=== PATIENT | male | born 1955 | race Caucasian/White ===

== ENCOUNTER 2018-07-16 07:39 | Day surgery (SDC) | payer OTHER ==
[~2018-07-16 07:39] MED LIST: Buffered Lidocaine 0.9% SYRIN* 5 ML/SYR SYRINGE INTRADERM ONE; Famotidine IV* 10 MG/ML 2 ML (20 mg) IV ONE
[2018-07-16] MEDS ORDERED: ceFAZolin 2 GM PREMIX in ORs 2 GM/50 ML BAG IVPB ONE (07:55)
[2018-07-16] MEDS ORDERED: Famotidine IV* 10 MG/ML 2 ML (20 mg) ONE (07:55)
[2018-07-16] MEDS ORDERED: Midazolam* 1 MG/ML 5 ML VIAL (5 MG) ONE (07:56)
[2018-07-16] MEDS ORDERED: fentaNYL* 50 MCG/ML 2 ML VIAL (100 MCG VIAL) ONE (07:56)
[2018-07-16] MEDS ORDERED: Morphine VIAL* 10 MG/ML 1 ML VIAL ONE (09:08)
[2018-07-16] MEDS ORDERED: Lidocaine 2% PF* 10 ML AMP ONE (10:05)
[2018-07-16] MEDS ORDERED: Bupivacaine 0.5% SDV PF* 30ML VIAL ONE (10:05)
[2018-07-16] MEDS ORDERED: Dexamethasone IV* 4 MG/ML 1 ML (4 MG) ONE (10:50)
[2018-07-16] MEDS ORDERED: Ondansetron INJ* 2 MG/ML VIAL ONE (10:50)
[2018-07-16] MEDS ORDERED: Propofol* 10 MG/ML 20 ML BTL IV PUSH ONE (10:50)
[2018-07-16] MEDS ORDERED: Ketorolac INJ* 30 MG/ML 1 ML VIAL ONE (10:50)
[2018-07-16] MEDS ORDERED: DiMENhydriNATE IV* 50 MG/ML VIAL IV PUSH PRN (11:13)
[2018-07-16] MEDS ORDERED: Naloxone* 0.4 MG/ML 1 ML VIAL IV PRN (11:13)
[2018-07-16] MEDS ORDERED: Acetaminophen TAB* 325 MG PO PRN (11:13)
[2018-07-16] MEDS ORDERED: oxyCODONE TAB* 5 MG TAB PO PRN (11:13)
[2018-07-16] MEDS ORDERED: HYDROmorphone INJ1* 1 MG/ML SYRINGE ONE (11:35)
[2018-07-16] MEDS: HYDROmorphone INJ1* 1 MG/ML SYRINGE IV PRN ×3 (11:36→12:11)
[2018-07-16] MEDS ORDERED: oxyCODONE TAB* 5 MG TAB ONE (11:49)
[2018-07-16 13:06] VITALS: BP 127/76
--- NOTE | 2018-07-16 13:07 | OP ---
Operative Report - Blank - Operative Report Date of Operation: 07/16/18 Note: PATIENT: Sourav Ibrahim DATE OF : 1955 DATE OF SURGERY: 07/16/2018 SURGEON: Rk Barton MD SITECORE DEVELOPER: DAISHA Hernandez, whos assistance was necessary for positioning, retraction, help with instrumentation, and closure. ANESTHESIOLOGIST: Dr. Motta PREOPERATIVE DIAGNOSIS: 1. 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 Right metatarsalgia and gastrocnemius contracture POSTOPERATIVE DIAGNOSIS: 1. 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 Right metatarsalgia and gastrocnemius contracture OPERATION: 1. Right 2-3 metatarsal webspace excision of Mortons neuroma 2. Right gastrocnemius recession ANESTHESIA: GETA IMPLANTS: none TOURNIQUET TIME: Less than one hour with a well-padded thigh tourniquet at 250mmHg SPECIMENS: none ESTIMATED BLOOD LOSS: minimal COMPLICATIONS: none STATUS: Stable from the operating room to the recovery room and then home INDICATIONS FOR PROCEDURE: Sourav has had persistent right foot pain refractory to extensive non- operative treatment. Both operative and non-operative treatment alternatives were reviewed. Further, the nature and risks of surgery were reviewed in careful detail. Our discussions regarding the risks of surgery included, but were not limited to, infection, wound problems, nerve injury, recurrent neuroma , RSD, persistent symptoms, blood clot, need for further surgery, failure of the surgery, and even the remote chance of catastrophic complication, including loss of limb. DESCRIPTION OF PROCEDURE: The patient was seen in the preoperative holding unit and informed written consent was obtained. The appropriate extremity was marked. The patient was then brought to the operating room and carefully positioned on the operating room table. Anesthesia was induced. All bony prominences were padded with great care. A well-padded thigh tourniquet was placed. A chlorhexidine based pre- scrub was performed followed by a chloraprep prep and drape in standard sterile fashion. A surgical safety pause was then conducted in which we confirmed the appropriate patient, extremity, planned procedure, availability of equipment, indication and administration of prophylactic antibiotics, and DVT prophylaxis in the form of a compression boot on the non-surgical extremity. I began with an Esmarch exsanguination of the limb and inflated the tourniquet. I then made an approximately 3-cm incision at the posteromedial calf. I carried the dissection through the soft tissue and divided the crural fascia longitudinally. I then exposed the fascia of the gastrocnemius muscle. Great care was taken to protect the sural nerve throughout this procedure. I cleared all adhesions from the posterior aspect of the gastrocnemius fascia and then transected this in its entirety from medially to laterally. I then identified the plantaris tendon, which was also tight medially. This was transected. These procedures had the effect of improving the ankle dorsiflexion to approximately 10 degrees. I then again confirmed that the sural nerve was in continuity. We irrigated copiously. We then used 3-0 Monocryl for the subdermal layer and adele for the skin. I then made an approximately 3 cm incision in the right 2-3 metatarsal web space dorsally. I carried this dissection down through the soft tissue and dissected down between the metatarsal heads. I utilized a laminar appeals representative to gently spread the metatarsal heads apart. I then placed a [place] elevator underneath the intermetatarsal ligament and transected this sharply. I exposed the interdigital nerve where there was some swelling. I meticulously dissected this out with care taken to preserve the lumbrical lateral to the nerve. I then transected the nerve distally. At this point, I gently pulled traction on the nerve and dissected proximally into the plantar aspect of the foot underneath the interossei and the lumbrical. I then transected the nerve as far proximal as was possible. We then irrigated copiously and closed in layers utilizing 3-0 Monocryl for the subdermal layer and 3-0 nylon for the skin. Sterile dressings were then applied. The patient was then awakened from anesthesia and transferred to the recovery room in stable condition. There were no complications. All needle and sponge counts were correct at the end of the case. ATTESTATION: I attest I was present and scrubbed and performed the critical portions of the procedure myself. POSTOPERATIVE PLAN: The plan is for [id number] for 2 weeks. Follow-up will be in 2 weeks for likely suture and staple removal. We will then progress weight-bearing and start physical therapy.
== END 2018-07-16 13:08 | disposition home or self-care (01) ==
LOC: OR 07:39
PROVIDERS: ATTEND Orthopaedic Surgery
DX: G57.61 Lesion of plantar nerve, right lower limb (principal); M67.01 Short Achilles tendon (acquired), right ankle; M77.41 Metatarsalgia, right foot; I10 Essential (primary) hypertension; I25.10 Atherosclerotic heart disease of native coronary artery without angina pectoris; Z72.0 Tobacco use; E03.9 Hypothyroidism, unspecified; Z85.850 Personal history of malignant neoplasm of thyroid
CPT/HCPCS: 88304; A9270-GY; J0690; J1100; J1170; J1885; J2001; J2250; J2270; J2405; J2704; J3010

== ENCOUNTER 2019-07-27 11:30 | Inpatient (IN) | payer BC, OTHER ==
--- NOTE | 2019-07-20 13:35 | HP ---
HISTORY AND PHYSICAL: DATE OF ADMISSION/SURGERY: 07/27/19 DATE OF OFFICE VISIT: 07/19/19 SURGEON: Shanti Morel MD * (DICTATED BY DAISHA DAVIS) PROCEDURE: Left total knee arthroplasty. CHIEF COMPLAINT: Left knee pain. HISTORY OF PRESENT ILLNESS: Mr. Ibrahim is a 63-year-old gentleman with complaints of left knee pain. He has failed conservative treatment and elected to proceed with a left total knee arthroplasty. PAST MEDICAL HISTORY: 1. Hypertension. 2. Hypothyroidism. 3. History of stage 1 thyroid cancer. 4. History of hepatitis C infection in 1995. PAST SURGICAL HISTORY: 1. Thyroidectomy. 2. Right foot surgery. 3. Lumbar diskectomy. 4. Left eye surgery. CURRENT MEDICATIONS: 1. Levothyroxine 125 mcg daily. 2. Vitamin D. 3. Atenolol 50 mg daily. 4. Ramipril 5 mg daily. 6. Tamsulosin 0.4 mg daily. 7. Potassium chloride. 8. Hydrochlorothiazide 25 mg a day. ALLERGIES: To CRESTOR. FAMILY HISTORY: Coronary artery disease and cancer. SOCIAL HISTORY: He is a 63-year-old gentleman, who lives with his . He quit smoking 2 weeks ago. Before that, he smoked for approximately 40 years. He denies use of drugs. REVIEW OF SYSTEMS: A complete 14-point review of systems was reviewed with the patient. It was positive for thyroid disease and history of hepatitis C infection in 1995, which was treated. He denies history of DVT, PE, or anesthesia problems. PHYSICAL EXAMINATION GENERAL: He is well developed, well nourished, in no acute distress. VITAL SIGNS: He stands 70 inches tall, weighs 258 pounds. His blood pressure 138/92, his heart rate is 56. HEENT: Normocephalic, atraumatic. NECK: Supple. No palpable lymph nodes. PULMONARY: The lungs are clear to auscultation bilaterally. CARDIO: Regular rate and rhythm. Strong S1, S2. ABDOMEN: Soft, nontender, nondistended. NEUROLOGIC: He is alert and oriented x3. MUSCULOSKELETAL: Left lower extremity: The skin is intact. There are no open wounds or abrasions. There is a moderate effusion of the left knee joint. Range of motion is 10 to 120 degrees of flexion. There is some tenderness along the medial joint line. He is able to dorsiflex and plantarflex with a 2+ dorsalis pedis pulse and intact sensation. ASSESSMENT AND PLAN: Mr. Ibrahim is a 63-year-old gentleman with severe end- stage osteoarthritis of the left knee, failed conservative treatment and elected to proceed with a left total knee arthroplasty and the surgery is scheduled for 07/27/[address] Morel discussed the risks and benefits of the surgery at today's visit and all of his questions were answered. He will follow up with Dr. Morel 2 weeks after the surgery. DAISHA DAVIS [id number]/[facility] #: [id number] [facility]
--- NOTE | 2019-08-19 19:48 | HP ---
PREOPERATIVE HISTORY AND PHYSICAL: DATE OF ADMISSION: 08/25/19 CHIEF COMPLAINT: Left knee pain. HISTORY OF PRESENT ILLNESS: Mr. Ibrahim is a 63-year-old gentleman with years of increasingly severe left knee pain. He has developed 8/10 aching pain along the joint line of the knee. He failed conservative treatment with anti- inflammatories, physical therapy and intraarticular injections and use of a cane as well as brace wear. The patient has severe end-stage arthritis on x- rays of the left knee. He does wish to proceed with upcoming left total knee arthroplasty on 08/25/19. PAST MEDICAL HISTORY: Foot injury, hypothyroidism, hypertension, cervical spondylosis without myelopathy, chronic neck pain, history of cellulitis of the right lower extremity, traumatic peroneal nerve injury. PAST SURGICAL HISTORY: Right foot surgery. CURRENT MEDICATIONS: 1. Levothyroxine 250 mcg p.o. daily. 2. Multivitamin 1 tablet p.o. daily. 3. Vitamin D 1000 units 1 p.o. daily. 4. Atenolol 50 mg p.o. daily. 5. Ramipril 5 mg p.o. daily. ALLERGIES: CRESTOR. FAMILY HISTORY: Negative. 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 No tobacco, alcohol, or recreational drug use. Normally an independent ambulator. REVIEW OF SYSTEMS: Fourteen systems were reviewed with the patient today; positive for left knee pain, right foot pain; negative for fevers, chills, chest pain, shortness of breath. Otherwise, the patient reports review of systems is negative or not relevant. PHYSICAL EXAMINATION GENERAL: The patient is a well-nourished male, in no apparent distress. Alert and oriented x3. Pleasant mood, appropriate affect. VITAL SIGNS: Height of 5 feet 10-1/2 inches tall, weight of 246 pounds, BMI of 34. Pulse is 72, blood pressure 122/90. GAIT: The patient's gait is antalgic, favoring the left knee. BALANCE: Decreased single-leg stance. Coordination normal. HEENT: Atraumatic, normocephalic. Pupils equal and reactive to light. CHEST: Unlabored breathing. EXTREMITIES: Bilateral upper extremities: The patient's skin is intact. No abrasions or open wounds. Some arthritic nodules along its PIP and DIP joints of the hands, full range of motion of the shoulders, neurovascularly intact. Bilateral lower extremities: The patient's skin is intact with varus deformity of both knees. Left knee has a moderate effusion with tenderness along the medial joint line. Bilateral range of motion 10 to 120 degrees of flexion. Distally neurovascularly intact. DIAGNOSTIC STUDIES/LAB DATA: Radiographs: Multiple views of the left knee shows severe end-stage arthritis with [id number] contact in the medial compartment. ASSESSMENT AND PLAN: Mr. Ibrahim is a 63-year-old gentleman with chronic left knee pain due to severe end-stage left knee arthritis. He has failed conservative treatment and will proceed with 08/25/19 left total knee arthroplasty. We are awaiting final clearance from his primary care physician. We will check preoperative labs and urinalysis. Informed consent was obtained from the patient. He understands the risk of surgery include, but are not limited to bleeding, infection, damage to nearby structures, continued pain , need for further surgery, intraoperative fracture, nerve palsy, hardware failure or loosening, knee stiffness, loss of motion, stroke, heart attack, blood clot and . He wishes to proceed. [id number]/[facility] #: [id number] [facility]
[2019-08-24] MEDS ORDERED: Buffered Lidocaine 1% SYRIN* 1 ML/SYRINGE INTRADERM ONE (10:55)
[2019-08-25] MEDS ORDERED: Tranexamic Acid 1,000 MG in NS 0.9% 50 ML* (outpatient use) IV SCH ×2
[2019-08-25] MEDS ORDERED: Lactated Ringers 1000 ML Bag* 1,000 ML IV SCH ×2 (06:00→15:00)
--- OUTSIDE RECORDS SUMMARY | 2019-08-25 08:13 | XMS REPORT | Continuity of Care Document ---
:1955 External Reference #:[id number] Author Name Shanti Morel M.D. (transmitted by agent of provider Yumiko Overton) Address [address] [place] [address] [place] [address] Care Team Providers Name Role Phone Yousuf Sadler MD - Family Medicine Care Team Information Speech Language Pathology Assistant Problems Active Problems Provider Date Plantar nerve lesion Rk Barton MD Onset: 01/30/2018 Traumatic injury of common peroneal nerve Rk Barton MD Onset: 01/30/2018 Other synovitis and tenosynovitis, unspecified Rk Barton MD Onset: 01/30 ankle and foot Tendon contracture Rk Barton MD Onset: 01/30/2018 Cellulitis of right lower limb kR Barton MD Onset: 03/13/2018 Metatarsalgia Rk Barton MD Onset: 06/02/2018 Neck pain Jean-Paul Messina M.D. Onset: 10/07/2018 Cervical spondylosis without myelopathy Jean-Paul Messina M.D. Onset: 10/28/2018 Localized, primary osteoarthritis Rk Barton MD Onset: 01/29/2019 Social History Type Date Description Comments Sex Unknown ETOH Use Denies alcohol use Tobacco Use Start: Unknown Patient is a current smoker, smokes some days Recreational Drug Use Denies Drug Use Smoking Status Reviewed: 08/18/19 Patient is a current smoker, smokes some days Allergies, Adverse Reactions, Alerts Active Allergies Reaction Severity Comments Date Rosuvastatin Calcium 01/30/2018 Medications Active Medications SIG Qnty Indications Ordering Date Provider Levothyroxine Sodium 2 by mouth Unknown 125mcg Tablets every day Vitamin D (Cholecalciferol) 1 every day Unknown 1000Unit Tablets Atenolol 1 by mouth Unknown 50mg Tablets every day Ramipril 1 by mouth Unknown 5mg Capsules every day Aleve 2 tablets as Unknown 220mg Tablets needed for pain Ibuprofen 200 400-600mg every Unknown 200mg Tablets 6 hours as needed for pain. Tamsulosin HCL 1 by mouth Unknown 0.4mg Capsules every day Hydrochlorothiazide Unknown Klor-Con 10 1 by mouth Unknown 10Meq Tablets ER every day Medications Administered in Office Medication SIG Qnty Indications Ordering Provider Date Triamcinolone (Kenalog) Rk Barton MD 01/29/2019 Injection Records Fee Rk Barton MD 01/20/2019 Injection Triamcinolone (Kenalog) Rk Barton MD 11/27/2018 Injection Immunizations Description No Information Available Vital Signs Date Vital Result Comment 08/18/2019 1:43pm Height 70.5 inches 5'10.50" Weight 256.00 lb Heart Rate 60 /min BP Systolic 118 mmHg BP Diastolic 70 mmHg Respiratory Rate 18 /min Pain Level 8 BMI (Body Mass Index) 36.2 kg/m2 08/06/2019 8:22am Height 70.5 inches 5'10.50" Weight 258.38 lb Heart Rate 60 /min BP Systolic 118 mmHg BP Diastolic 76 mmHg Respiratory Rate 18 /min Body Temperature 96.5 F Pain Level 6 BMI (Body Mass Index) 36.5 kg/m2 Results Test Acquired Date Facility Test Result H/L Range Note CBC Auto 08/16/2019 [facility] White Blood 11.9 10^3/uL High 3.5-10.[address] [place] [address] [phone] Red Blood Count 5.30 10^6/uL Normal 4.18-5.48 Hemoglobin 16.4 g/dL Normal 14.0-18.0 Hematocrit 47 % Normal 42-52 Mean Corpuscular Volume 89 fL Normal 80-94 Mean Corpuscular Hemoglobin 31 pg Normal 27-31 Mean Corpuscular HGB Conc 35 g/dL Normal 31-36 Red Cell Distribution Width 13 % Normal 10-15 Platelet Count 275 10^3/uL Normal 150-450 Mean Platelet Volume 9.1 fL Normal 7.4-10.4 Abs Neutrophils 6.5 10^3/uL Normal 1.5-7.7 Abs Lymphocytes 3.7 10^3/uL Normal 1.0-4.8 Abs Monocytes 1.3 10^3/uL High 0-0.8 Abs Eosinophils 0.4 10^3/uL Normal 0-0.6 Abs Basophils 0.1 10^3/uL Normal 0-0.2 Abs Nucleated RBC 0.0 10^3/uL Granulocyte % 54.2 % Lymphocyte % 31.4 % Monocyte % 10.5 % Eosinophil % 3.1 % Basophil % 0.8 % Nucleated Red Blood Cells % 0.1 Urinalysis Profile 08/16/2019 [facility] Urine Color Yellow [address] [place] [address] [phone] Urine Appearance Clear Urine Specific [place] 1.016 Normal 1.010-1.030 Urine pH 7.0 Normal 5-9 Urine Urobilinogen Negative Negative Urine Ketones Negative Negative Urine Protein Negative Negative Urine Leukocytes Negative Negative Urine Blood Negative Negative Urine Nitrite Negative Negative Urine Bilirubin Negative Negative Urine Glucose Negative Negative Comp Metabolic 08/16/2019 [facility] Sodium 137 mmol/L Normal 135-145 Panel [address] [place] [address] [phone] Potassium 4.2 mmol/L Normal 3.5-5.0 Chloride 102 mmol/L Normal 101-111 Co2 Carbon Dioxide 28 mmol/L Normal 22-32 Anion Gap 7 mmol/L Normal 2-11 Glucose 87 mg/dL Normal 70-100 Blood Urea Nitrogen 15 mg/dL Normal 6-24 Creatinine 0.95 mg/dL Normal 0.67-1.17 BUN/Creatinine Ratio 15.8 Normal 8-20 Calcium 10.2 mg/dL Normal 8.6-10.3 Total Protein 7.2 g/dL Normal 6.4-8.9 Albumin 4.4 g/dL Normal 3.2-5.2 Globulin 2.8 g/dL Normal 2-4 Albumin/Globulin Ratio 1.6 Normal 1-3 Total Bilirubin 0.40 mg/dL Normal 0.2-1.0 Alkaline Phosphatase 60 U/L Normal 34-104 Alt 46 U/L Normal 7-52 Ast 32 U/L Normal 13-39 Egfr Non- 79.8 >60 Egfr 96.6 >60 1 Inr/Protime 08/16/2019 [facility] Inr 1.11 High 0.82-1.[address] [place] [address] [phone] Laboratory test 08/16/2019 [facility] Partial 40.3 seconds High 26.0-38.[address] [place] [address] Time PTT [phone] Type & Screen 08/16/2019 [facility] Patient B Positive [address] [place] [address] [phone] Antibody Screen NEGATIVE Urine Culture And 08/16/2019 [facility] Urine SEE RESULT [address] [place] [address] [phone] Inr/Protime 07/19/2019 [facility] Inr 1.10 High 0.[address] -1.0 [place] [address] 9 [phone] Laboratory test 07/19/2019 [facility] Partial 41.9 seconds High 26.[address] Thrombo Time -38. [place] [address] PTT 0 [phone] CBC Auto Diff 07/19/2019 [facility] White Blood 9.0 10^3/uL Normal 3.5- [address] Count 10.8 [place] [address] [phone] Red Blood Count 5.35 10^6/uL Normal 4.18-5.48 Hemoglobin 16.4 g/dL Normal 14.0-18.0 Hematocrit 48 % Normal 42-52 Mean Corpuscular Volume 89 fL Normal 80-94 Mean Corpuscular Hemoglobin 31 pg Normal 27-31 Mean Corpuscular HGB Conc 34 g/dL Normal 31-36 Red Cell Distribution Width 13 % Normal 10-15 Platelet Count 240 10^3/uL Normal 150-450 Mean Platelet Volume 8.9 fL Normal 7.4-10.4 Abs Neutrophils 5.0 10^3/uL Normal 1.5-7.7 Abs Lymphocytes 2.6 10^3/uL Normal 1.0-4.8 Abs Monocytes 1.0 10^3/uL High 0-0.8 Abs Eosinophils 0.2 10^3/uL Normal 0-0.6 Abs Basophils 0.1 10^3/uL Normal 0-0.2 Abs Nucleated RBC 0.1 10^3/uL Granulocyte % 56.3 % Lymphocyte % 29.4 % Monocyte % 10.7 % Eosinophil % 2.6 % Basophil % 1.0 % Nucleated Red Blood Cells % 0.5 Urinalysis Profile 07/19/2019 [facility] Urine Color Yellow [address] [place] [address] [phone] Urine Appearance Clear Urine Specific [place] 1.010 Normal 1.010-1.030 Urine pH 7.0 Normal 5-9 Urine Urobilinogen Negative Negative Urine Ketones Negative Negative Urine Protein Negative Negative Urine Leukocytes Negative Negative Urine Blood Negative Negative Urine Nitrite Negative Negative Urine Bilirubin Negative Negative Urine Glucose Negative Negative Type & Screen 07/19/2019 [facility] Patient Blood Type B Positive [address] [place] [address] [phone] Antibody Screen NEGATIVE Comp Metabolic 07/19/2019 [facility] Sodium 139 mmol/L Normal 135-145 Panel [facility] [place] [address] [phone] Potassium 4.1 mmol/L Normal 3.5-5.0 Chloride 103 mmol/L Normal 101-111 Co2 Carbon Dioxide 26 mmol/L Normal 22-32 Anion Gap 10 mmol/L Normal 2-11 Glucose 91 mg/dL Normal 70-100 Blood Urea Nitrogen 15 mg/dL Normal 6-24 Creatinine 0.81 mg/dL Normal 0.67-1.17 BUN/Creatinine Ratio 18.5 Normal 8-20 Calcium 9.8 mg/dL Normal 8.6-10.3 Total Protein 6.8 g/dL Normal 6.4-8.9 Albumin 4.5 g/dL Normal 3.2-5.2 Globulin 2.3 g/dL Normal 2-4 Albumin/Globulin Ratio 2.0 Normal 1-3 Total Bilirubin 0.80 mg/dL Normal 0.2-1.0 Alkaline Phosphatase 60 U/L Normal 34-104 Alt 47 U/L Normal 7-52 Ast 31 U/L Normal 13-39 Egfr Non- 95.9 >60 Egfr 116.1 >60 5 Urine Culture And 07/19/2019 [facility] Urine Culture SEE RESULT [address] [place] [address] [phone] 1 Because ethnic data is not always readily available, this report includes an eGFR for both -Americans and non- Americans. The National Kidney Disease Education Program (NKDEP) does not endorse the use of the MDRD equation for patients that are not between the ages of 18 and 70, are , have extremes of body size, muscle mass, or nutritional status, or are non- or non-. According to the National Kidney Foundation, irrespective of diagnosis, the stage of the disease is based on the level of kidney function: Stage Description GFR(mL/min/1.73 m(2)) 1 Kidney damage with normal or decreased GFR 90 2 Kidney damage with mild decrease in GFR 60-89 3 Moderate decrease in GFR 30-59 4 Severe decrease in GFR 15-29 5 Kidney failure <15 (or dialysis) 2 Standard intensity warfarin therapeutic range: 2.0-3.0 High intensity warfarin therapeutic range: 2.5-3.5 3 SEE RESULT BELOW Name: SOURAV IBRAHIM : [address]: Shanti Morel MD Acct: [id number] Unit: [id number] AGE: 63 Location: [facility] Re08/16/19 SEX: M Status: REG REF SPEC: [id number] GENE: 08/16/19-[address]: Shanti Morel MD REQ: [id number] RECD: 08/16/19 STATUS: COMP _ [facility] ORDERED: Urine Culture QUERIES: Urine Source: Clean Catch Procedure Result Reported Site Urine Culture Final 08/17/19- 1418 ML No Growth (<1,000 CFU/mL) * ML - Main Lab . END OF REPORT DEPARTMENT OF PATHOLOGY, [address] [place] [address] Todd Mckay M.D. Director [facility] # [id number] 4 Standard intensity warfarin therapeutic range: 2.0-3.0 High intensity warfarin therapeutic range: 2.5-3.5 5 Because ethnic data is not always readily available, this report includes an eGFR for both -Americans and non- Americans. The National Kidney Disease Education Program (NKDEP) does not endorse the use of the MDRD equation for patients that are not between the ages of 18 and 70, are , have extremes of body size, muscle mass, or nutritional status, or are non- or non-. According to the National Kidney Foundation, irrespective of diagnosis, the stage of the disease is based on the level of kidney function: Stage Description GFR(mL/min/1.73 m(2)) 1 Kidney damage with normal or decreased GFR 90 2 Kidney damage with mild decrease in GFR 60-89 3 Moderate decrease in GFR 30-59 4 Severe decrease in GFR 15-29 5 Kidney failure <15 (or dialysis) 6 SEE RESULT BELOW Name: SOURAV IBRAHIM : [address]: Shanti Morel MD Acct: [id number] Unit: [id number] AGE: 63 Location: [facility] Re07/19/19 SEX: M Status: REG REF SPEC: [id number] GENE: 07/19/[address] [facility] [address]: Shanti Morel MD REQ: [id number] RECD: 07/19/191204 STATUS:COMP _ SOURCE: URINE SPDESC: ORDERED: Urine Culture QUERIES: Urine Source: Random Procedure Result Reported Site Urine Culture Final 07/20/19- 1252 ML No growth of clinically significant organisms * ML - Main Lab . END OF REPORT DEPARTMENT OF PATHOLOGY, [address] [place] [address] Todd Mckay M.D. Director [facility] # [id number] Procedures Description No Information Available Medical Devices Description No Information Available Encounters Type Date Location Provider Dx Diagnosis [facility] S94.21xD Injury of deep 8:30a at [place] peroneal nrv at ank/ft level, right leg, subs [facility], M17.12 Unilateral 8:00a at [place] Jessica primary osteoarthritis, left knee M25.562 Pain in left knee M25.462 Effusion, left knee Office Visit 05/07/2019 9:30a Gracie Kasper4.21xD Injury of deep Orthopedics at MD peroneal nrv [place] at ank/ft level, right leg, subs S94.21xD Injury of deep peroneal nrv at ank/ft level, right leg, subs Office Visit 05/07/2019 [facility] Mick, M17.12 Unilateral primary 9:15a Orthopedics at osteoarthritis, left [place] knee Assessments Date Code Description Provider 08/18/2019 M17.12 Unilateral primary osteoarthritis, left knee Sahnti Morel M.D. 08/18/2019 M25.562 Pain in left knee Shanti Morel M.D. 08/18/2019 M25.462 Effusion, left knee Shanti Morel M.D. 08/06/2019 S94.21xD Injury of deep peroneal nerve at ankle and Rk Barton MD foot level, right leg, subsequent encounter 07/19/2019 M17.12 Unilateral primary osteoarthritis, left knee Shanti Morel M.D. 07/19/2019 M25.562 Pain in left knee Shanti Morel M.D. 07/19/2019 M25.462 Effusion, left knee Shanti Morel M.D. 05/26/2019 M17.12 Unilateral primary osteoarthritis, left knee Shanti Morel M.D. 05/26/2019 M25.562 Pain in left knee Shanti Morel M.D. 05/26/2019 M25.462 Effusion, left knee Shanti Morel M.D. 05/07/2019 S94.21xD Injury of deep peroneal nerve at ankle and Rk Barton MD foot level, right leg, subsequent encounter 05/07/2019 S94.21xD Injury of deep peroneal nerve at ankle and Rk Barton MD foot level, right leg, subsequent encounter 05/07/2019 M17.12 Unilateral primary osteoarthritis, left knee Rk Barton MD Plan of Treatment Future Appointment(s):09/06/2019 2:45 pm - Shanti Morel M.D. at [facility] at Wcfvxs0308/25/2019 12:30 pm - RIGOBERTO Crenshaw at [facility] at Dkycod9608/25/2019 12:30 pm - Shanti Morel M.D. at [facility] at Zntjes6708/18/2019 - Shanti Morel M.D.M17.12 Unilateral primary osteoarthritis, left kneeFollow up:Follow up: 10-14 days vkoegiT37.562 Pain in left kneeM25.462 Effusion, left knee Functional Status Description No Information Available Mental Status Description No Information Available Referrals Description No Information Available
--- OUTSIDE RECORDS SUMMARY | 2019-08-25 08:13 | XMS REPORT | Continuity of Care Document ---
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 Active Problems Provider Date Plantar nerve lesion Rk Barton MD Onset: 01/30/2018 Traumatic injury of common peroneal nerve Rk Barton MD Onset: 01/30/2018 Other synovitis and tenosynovitis, unspecified Rk Barton MD Onset: 01/30 ankle and foot Tendon contracture Rk Barton MD Onset: 01/30/2018 Cellulitis of right lower limb Rk Barton MD Onset: 03/13/2018 Metatarsalgia Rk Barton [...] Use Denies Drug Use Smoking Status Reviewed: 08/06/19 Patient is a current smoker, smokes some [...] Available Vital Signs Date Vital Result Comment 08/06/2019 8:22am Height 70.5 inches 5'10.50" Weight 258.38 lb Heart Rate 60 /min BP Systolic 118 mmHg BP Diastolic 76 mmHg Respiratory Rate 18 /min Body Temperature 96.5 F Pain Level 6 BMI (Body Mass Index) 36.5 kg/m2 07/19/2019 8:12am Height 70.5 inches 5'10.50" Weight 258.00 lb Heart Rate 56 /min BP Systolic 138 mmHg BP Diastolic 92 mmHg Body Temperature 95.9 F Pain Level 7 BMI (Body Mass Index) 36.5 kg/m2 Results Test Acquired Date Facility Test Result H/L Range Note Inr/Protime 07/19/2019 [facility] Inr 1.10 High 0.82-1.[address] [place] [address] [phone] Laboratory test 07/19/2019 [facility] Partial 41.9 High 26.0- 38.[address] [place] [address] PTT [phone] CBC Auto Diff 07/19/2019 [facility] White Blood 9.0 10^3/uL Normal 3.5-10.[address] [place] [address] [phone] Red Blood Count 5.35 10^6/uL Normal 4.18-5.48 [...] Blood Cells % 0.5 Urinalysis Profile 07/19/2019 [facility] Urine Color Yellow [address] [place] [address] [phone] Urine Appearance Clear Urine Specific [place] 1.010 Normal 1.010-1.030 Urine pH 7.0 Normal 5-9 Urine Urobilinogen Negative Negative Urine Ketones Negative Negative Urine Protein Negative Negative Urine Leukocytes Negative Negative Urine Blood Negative Negative Urine Nitrite Negative Negative Urine Bilirubin Negative Negative Urine Glucose Negative Negative Type & Screen 07/19/2019 [facility] Patient Blood Type B Positive [address] [place] [address] [phone] Antibody Screen NEGATIVE Comp Metabolic 07/19/2019 [facility] Sodium 139 mmol/L Normal 135-[address] [place] [address] [phone] Potassium 4.1 mmol/L Normal 3.5-5.0 Chloride 103 [...] Egfr Non- 95.9 >60 Egfr 116.1 >60 2 Urine Culture And 07/19/2019 [facility] Urine Culture SEE RESULT [address] [place] [address] [phone] 1 Standard intensity warfarin therapeutic range: 2.0-3.0 High intensity warfarin therapeutic range: 2.5-3.5 2 Because ethnic data is not always readily [...] 15-29 5 Kidney failure <15 (or dialysis) 3 SEE RESULT BELOW Name: SOURAV IBRAHIM : [address]: Shanti Morel MD Acct: [id number] Unit: [id number] AGE: 63 Location: [facility] Re07/19/19 SEX: M Status: REG REF SPEC: [id number] GENE: 07/19/19-[address]: Shanti Morel MD REQ: [id number] RECD: 07/19/19 STATUS:COMP _ SOURCE: URINE SPDESC: ORDERED: Urine Culture QUERIES: Urine Source: Random Procedure Result Reported Site Urine Culture Final 07/20/19- 1252 ML No growth of clinically significant organisms * ML - Main Lab . END OF REPORT DEPARTMENT OF PATHOLOGY, [address] [place] [address] Todd Mckay M.D. Director [facility] # [id number] Procedures Description No Information Available Medical Devices Description No Information Available Encounters Type Date Location Provider Dx Diagnosis Office Visit 05/26/2019 [facility] Shanti Morel, M17.12 Unilateral primary 8:00a at [place] osteoarthritis, left knee M25.562 Pain in left knee M25.462 Effusion, left knee Office Visit 05/07/2019 9:30a Maricarmen Barton, S94.21xD Injury of deep Orthopedics at peroneal nrv [place] at ank/ft level, right leg, subs S94.21xD Injury of deep peroneal nrv at ank/ft level, right leg, subs Office Visit 05/07/2019 Maricarmen Barton, M17.12 Unilateral primary 9:15a Orthopedics at osteoarthritis, left [place] knee Assessments Date Code Description Provider 08/06/2019 S94.21xD Injury of deep peroneal nerve [...] Rk Barton MD Plan of Treatment Future Appointment(s):08/25/2019 12:30 pm - Shanti Morel M.D. at [facility] at Wrdnhe3608/16/2019 1:30 pm - Shanti Morel M.D. at [facility] at Xwkgrp9308/06/2019 - VIKI Ceballos94.21xD Injury of deep peroneal nerve at ankle and foot level, right leg, subsequent encounterFollow up :Follow Up: As needed Functional Status Description No Information Available Mental Status Description No Information Available Referrals Description No Information Available
--- OUTSIDE RECORDS SUMMARY | 2019-08-25 08:13 | XMS REPORT | Continuity of Care Document ---
:1955 External Reference #:[id number] Author Name Shanti Morel M.D. 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 Onset: 10/07/2018 Cervical spondylosis without myelopathy Jea-nPaul Messina M.D. Onset: 10/28/2018 Localized, primary osteoarthritis Rk Barton MD Onset: 01/29/2019 Social History Type Date Description Comments Sex Unknown ETOH Use Denies alcohol use Tobacco Use Start: Unknown Patient is a current smoker, smokes some days Recreational Drug Use Denies Drug Use Smoking Status Reviewed: 07/19/19 Patient is a current smoker, smokes some [...] by mouth Unknown 0.4mg Capsules every day Potassium Chloride ER Unknown Hydrochlorothiazide Unknown Medications Administered in Office Medication SIG Qnty Indications Ordering Provider Date Triamcinolone (Kenalog) Rk Barton MD 01/29/2019 Injection Records Fee Rk Barton MD 01/20/2019 Injection Triamcinolone (Kenalog) Rk Barton MD 11/27/2018 Injection Immunizations Description No Information Available Vital Signs Date Vital Result Comment 07/19/2019 8:12am Height 70.5 inches 5'10.50" Weight 258.00 lb Heart Rate 56 /min BP Systolic 138 mmHg BP Diastolic 92 mmHg Body Temperature 95.9 F Pain Level 7 BMI (Body Mass Index) 36.5 kg/m2 05/26/2019 7:59am Height 70.5 inches 5'10.50" Weight 246.00 lb Heart Rate 72 /min BP Systolic 122 mmHg BP Diastolic 90 mmHg Respiratory Rate 16 /min Body Temperature 97.0 F Pain Level 7 BMI (Body Mass Index) 34.8 kg/m2 Results Description No Information Available Procedures Date Code Description Status 01/29/2019 [address] Inject/Drain Joint/Bursa Major W/O US Completed Medical Devices Description No Information Available Encounters Type Date Location Provider Dx Diagnosis Office Visit 05/26/2019 [facility] Shanti Morel, M17.12 Unilateral primary 8:00a at [place] osteoarthritis, left knee M25.562 Pain in left knee M25.462 Effusion, left knee Office Visit 05/07/2019 9:30a Maricarmen Barton, S94.21xD Injury of deep Orthopedics at MD gust[place] at ank/ft level, right leg, subs S94.21xD Injury of deep peroneal pepper at ank/ft level, right leg, subs Office 05/07/2019 Maricarmen Barton, M17.12 Unilateral primary Visit 9:15a Orthopedics at osteoarthritis, left [place] knee Office 01/29/2019 Maricarmen Barton, M17.12 Unilateral primary Visit 8:00a Orthopedics at osteoarthritis, left [place] knee Office 01/29/2019 [facility] Barton, S94.21xA Injury of deep Visit 8:30a Orthopedics at MD chen nryanet at [place] ank/ft level, right leg, init Assessments Date Code Description Provider 07/19/2019 M17.12 Unilateral primary osteoarthritis, left knee [...] primary osteoarthritis, left knee Rk Barton MD 01/29/2019 S94.21xA Injury of deep peroneal nerve at ankle and Rk Barton MD foot level, right 01/29/2019 M17.12 Unilateral primary osteoarthritis, left knee Rk Barton MD Plan of Treatment Future Appointment(s):08/11/2019 9:30 am - Shanti Morel M.D. at [facility] at Jhoooy5007/27/2019 10:30 am - RIGOBERTO Crenshaw at [facility]07/27/2019 10:30 am - DAISHA Santos at [facility] at Corwre2607/27/2019 10:30 am - Shanti Morel M.D. at [facility] at Exzhsy1308/06/2019 8:30 am - Rk Barton MD at [facility] at Scjjlq9207/19/2019 - Shanti Morel M.D.M17.12 Unilateral primary osteoarthritis, left kneeFollow up:Follow up: 2 weeks after ojciyhnL44.562 Pain in left kneeM25.462 Effusion, left knee Functional Status Description No Information Available Mental Status Description No Information Available Referrals Description No Information Available
--- OUTSIDE RECORDS SUMMARY | 2019-08-25 08:13 | XMS REPORT | Continuity of Care Document ---
:1955 External Reference #:[id number] Author Name Shanti Morel M.D. 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 [phone] Problems Active Problems Provider Date Plantar nerve [...] BMI (Body Mass Index) 34.8 kg/m2 Results Test Acquired Date Facility Test Result H/L Range Note Inr/Protime 07/19/2019 [facility] Inr 1.10 High 0.82-1.[address] [place] [address] [phone] Laboratory test 07/19/2019 [facility] Partial 41.9 High 26.0- 38.[address] [place] [address] PTT [phone] CBC Auto Diff 07/19/2019 [facility] White Blood 9.0 10^3/uL Normal 3.5-10.[address] [place] [address] [phone] Red Blood Count 5.35 10^6/uL Normal 4.18-5.48 [...] Blood Cells % 0.5 Urinalysis Profile 07/19/2019 [facility] Urine Color Yellow [address] [place] [address] [phone] Urine Appearance Clear Urine Specific Bonnie 1.010 Normal 1.010-1.030 Urine pH 7.0 Normal 5-9 Urine Urobilinogen Negative Negative Urine Ketones Negative Negative Urine Protein Negative Negative Urine Leukocytes Negative Negative Urine Blood Negative Negative Urine Nitrite Negative Negative Urine Bilirubin Negative Negative Urine Glucose Negative Negative Type & Screen 07/19/2019 [facility] Patient Blood Type B Positive [address] [place] [address] [phone] Antibody Screen NEGATIVE Comp Metabolic 07/19/2019 [facility] Sodium 139 mmol/L Normal 135-[address] [place] [address] [phone] Potassium 4.1 mmol/L Normal 3.5-5.0 Chloride 103 [...] 116.1 >60 2 Urine Culture And 07/19/2019 [facility] Urine Culture SEE RESULT [address] [place] [id number] [phone] 1 Standard intensity warfarin therapeutic range: 2.0-3.0 [...] [address]: Shanti Morel MD Acct: [id number] Unit: [id number] AGE: 63 Location: PAT Re07/19/19 SEX: M Status: REG REF SPEC: [id number] GENE: 07/19/19-[address] [facility] [address]: Shanti Morel MD REQ: [id number] RECD: 07/19/19 STATUS:COMP _ SOURCE: URINE SPDESC: ORDERED: Urine Culture QUERIES: Urine Source: Random Procedure Result Reported Site Urine Culture Final 07/20/19- 1252 ML No growth of clinically significant organisms * ML - Main Lab . END OF REPORT DEPARTMENT OF PATHOLOGY, [address] [place] [address] Todd Mckay M.D. Director [facility] # [id number] Procedures Date Code Description Status 01/29/2019 72178 Inject/Drain Joint/Bursa Major W/O US Completed Medical Devices Description No Information Available Encounters Type Date Location Provider Dx Diagnosis Office Visit 05/26/2019 [facility] Dalton[facility].12 Unilateral primary 8:00a at [facility] osteoarthritis, left knee M25.562 Pain in left knee M25.462 Effusion, left knee Office Visit 05/07/2019 9:30a Maricarmen Barton S94.21xD Injury of deep Orthopedics at peroneal nrv [place] at ank/ft level, right leg, subs S94.21xD Injury of deep peroneal nrv at ank/ft level, right leg, subs Office 05/07/2019 Maricarmen Barton M17.12 Unilateral primary Visit 9:15a Orthopedics at osteoarthritis, left [place] knee Office 01/29/2019 Maricarmen Barton M17.12 Unilateral primary Visit 8:00a Orthopedics at [facility], left [place] knee Office 01/29/2019 Maricarmen Barton, S94.21xA Injury of deep Visit 8:30a Orthopedics at [facility] at [place] ank/ft level, right leg, init Assessments Date Code Description Provider 07/19/2019 M17.12 Unilateral primary osteoarthritis, left knee Shanti oMrel M.D. 07/19/2019 M25.562 Pain in left knee [...] Rk Barton MD Plan of Treatment Future Appointment(s):08/06/2019 8:30 am - Rk Barton MD at [facility] at Nxzktw9307/19/2019 - Shanti Morel M.D.M17.12 Unilateral primary osteoarthritis, left kneeFollow up:Follow up: 2 weeks after imwoxmoR52.562 Pain in left kneeM25.462 Effusion, left knee Functional Status Description No Information Available Mental Status Description No Information Available Referrals Description No Information Available
--- OUTSIDE RECORDS SUMMARY | 2019-08-25 08:13 | XMS REPORT ---
:1955 Author Organization [facility] Care Team Providers Name Role Phone Lionel Samuels Unavailable Unavailable PROBLEMS Unknown Problems ALLERGIES Substance Reaction Event Type Date Status Crestor Unknown Drug Allergy Jul, Active ENCOUNTERS Encounter Location Date Diagnosis [facility] [address] [place], [place], [address] [facility] [address] [place], [place], [address] [place], [address] [place], [address] IMMUNIZATIONS No Known Immunizations SOCIAL HISTORY Never Assessed REASON FOR REFERRAL FUNCTIONAL STATUS PLAN OF CARE VITAL SIGNS Blood pressure systolic 120 mm Hg 2019-07-30 Blood pressure diastolic 84 mm Hg 2019-07-30 MEDICATIONS Medication Instructions Dosage Frequency Start End Duration Status Date Date Levothyroxine Sodium Orally Once a 1 tablet 24h Active 25 MCG day on an empty stomach in the morning Hydrochlorothiazide 25 Orally Once a 1 tablet 24h Active MG day in the morning Ramipril 10 MG Orally Once a 1 capsule 24h Active day atenolol 1 tab Active Potassium 1 tab Active Tamsulosin HCl 0.4 MG Orally Once a 1 capsule 24h Active day PROCEDURES Procedure Date Ordered Result Body Site BLOOD PRESSURE, MEASURED Jul 30, 2019 EXTRAC ERUPTED TOOTH/EXPOSED ROOT Jul 30, 2019 EXTRAC ERUPTED TOOTH/EXPOSED ROOT Jul 30, 2019 INTRAORL-PERIAPICAL 1 FILM 20387 Jul 30, 2019 LTD ORAL EVALUATION-PROBLEM FOCUS Jul 30, 2019 LTD ORAL EVALUATION-PROBLEM FOCUS Jul 30, 2019 RESULTS No Results REASON FOR VISIT lower right back Insurance Providers Health Health Health Health Health Member Patient Patient Patient Patient Patient Subscriber Subscriber Subscriber Group Insurance Plan Plan Plan Plan ID Relationship Address Phone Name Date of ID Name Date of No Type Insurance Insurance Insurance Coverage to Subscriber Address Phone Name Dates Neel JOVAN Booker [phone] Neel Benjamin [id number] [id number] Patrice Dnt Hplx Claims Dnt Hplx [address] [facility] [address]
[2019-08-25] MEDS ORDERED: ceFAZolin 2 GM PREMIX in ORs 2 GM/50 ML BAG ONE (08:52)
[2019-08-25] MEDS ORDERED: Midazolam* 1 MG/ML 5 ML VIAL (5 MG) ONE ×2 (10:55→11:50)
[2019-08-25] MEDS ORDERED: Bupivacaine 0.25% SDV* 30 ML ONE (10:57)
[2019-08-25] MEDS ORDERED: ROPIVACAINE 5 MG/ML 30 ML BTL (0.5%) ONE ×2 (11:16→12:07)
[2019-08-25] MEDS ORDERED: methylPREDNISolone ACETATE 80* 80 MG/ML 1 ML VIAL ONE (11:16)
[2019-08-25] MEDS ORDERED: fentaNYL* 50 MCG/ML 2 ML VIAL (100 MCG VIAL) ONE (11:38)
[2019-08-25] MEDS ORDERED: Dexamethasone IV* 4 MG/ML 1 ML (4 MG) ONE ×2 (11:50)
[2019-08-25] MEDS ORDERED: Bupivacaine 0.5% SDV PF* 30ML VIAL ONE (11:54)
[2019-08-25] MEDS ORDERED: Propofol* 10 MG/ML 20 ML BTL ONE ×2 (11:55→13:36)
[2019-08-25] MEDS ORDERED: Midazolam* 1 MG/ML 2 ML VIAL (2 MG) ONE (13:36)
[2019-08-25] MEDS ORDERED: Naloxone* 0.4 MG/ML 1 ML VIAL IV PRN (14:09)
[2019-08-25] MEDS ORDERED: Acetaminophen IV 1GM/100ML * 1,000 MG/100 ML VIAL IVPB ONE (14:09)
[2019-08-25] MEDS ORDERED: fentaNYL* 50 MCG/ML 2 ML VIAL (100 MCG VIAL) IV PRN (14:09)
[2019-08-25] MEDS ORDERED: oxyCODONE TAB* 5 MG TAB PO PRN ×2 (14:09→14:35)
[2019-08-25] MEDS ORDERED: Ondansetron INJ* 2 MG/ML VIAL IV PRN ×2 (14:09→14:35)
[2019-08-25] MEDS ORDERED: HYDROmorphone INJ1* 1 MG/ML SYRINGE IV PRN (14:09)
[2019-08-25] MEDS ORDERED: DiMENhydriNATE IV* 50 MG/ML VIAL IV PUSH PRN (14:09)
[2019-08-25] MEDS ORDERED: Ondansetron INJ* 2 MG/ML VIAL ONE (14:11)
[2019-08-25] MEDS ORDERED: Ketorolac INJ* 30 MG/ML 1 ML VIAL ONE (14:13)
[2019-08-25] MEDS ORDERED: Cyclobenzaprine TAB* 10 MG PO PRN (14:35)
[2019-08-25] MEDS ORDERED: Magnesium Hydroxide LIQ* 30 ML UDC PO PRN (14:35)
[2019-08-25] MEDS ORDERED: Ondansetron ODT TAB* 4 MG PO PRN (14:35)
[2019-08-25] MEDS ORDERED: traZODone TAB* 50 MG TAB PO PRN (14:35)
[2019-08-25] MEDS ORDERED: traMADol TAB* 50 MG PO PRN (14:35)
[2019-08-25] MEDS ORDERED: diPHENhydraMINE IV* 50 MG/ML 1 ml VIAL (BENADRYL) IV PRN (14:35)
[2019-08-25] MEDS ORDERED: diPHENhydraMINE PO* 25 MG PO PRN (14:35)
[2019-08-25] MEDS ORDERED: oxyCODONE/Acetamin 5/325 MG* TAB PO PRN (14:35)
[2019-08-25] MEDS ORDERED: Polyethylene Glycol 3350* 17 GM PACKET PO PRN (14:35)
[2019-08-25] MEDS ORDERED: Morphine INJ* 2 MG/ML 1 ML SYRINGE (TWO MG - NEW SYRINGE VERSION) IV PRN (14:35)
[2019-08-25] MEDS: oxyCODONE/Acetamin 5/325 MG* TAB PO PRN ×2 (15:57→20:55)
--- NOTE | 2019-08-25 17:33 | PN ---
Progress Note - Progress Note Date of Service: 08/25/19 Note: Post-op check: Patient resting comfortably in joint chair. He has taken oral medication for pain and is preparing to work with PT. He denies SOB, or CP. He has +DF/PF with intact sensation and 2+ DP pulses bilaterally. Patient encouraged to work with PT and nursing for pain management. Will monitor and appreciated medicine's counseling aide.
--- NOTE | 2019-08-25 18:42 | OP ---
Operative Report - Blank - Operative Report Date of Operation: 08/25/19 Note: NIKKO BERTRAND 1955 Date of Surgery: 08/25/19 Shanti Morel MD Director Of Early Childhood: Yoni ASHTON did help throughout the procedure with preparation of the knee, wound retraction, manipulation of the knee, and wound closure. Anesthesiologist: Beatriz Villa MD Anesthesia Type: Spinal Preoperative Diagnosis: Left severe degenerative osteoarthritis of the knee Postoperative Diagnosis: As above Procedure Performed: Left Total Knee Arthroplasty Tourniquet time: 65 minutes Complications: None Specimen: Bone and cartilage from the left knee joint sent to pathology. Hardware Used: Cemented Olmedo [employer] Nephew total knee hardware was used - For the femur a size 7 left oxinium legion posterior stabilized femoral component, for the tibia a size 6 left latha II tibial baseplate, for the insert a size 9mm 5 -6 posterior stabilized articular polyethylene insert, and for the patella a size 35 3-peg all poly patella. Brief History/Indication: NIKKO BERTRAND was known in clinic and had a history of severe left knee pain and swelling. He failed conservative treatment with anti-inflammatories, pain pills, intra-articular injections and physical therapy. He elected to undergo left total knee arthroplasty due to continued pain and decreased quality of life. Radiographs showed severe end stage osteoarthritis of the knee with bone on bone contact. Informed consent was obtained from the patient. He understood the risks of surgery included but were not limited to: bleeding, infection, damage to nearby structures, intraoperative fracture, nerve palsy, failure of the hardware, early loosening, knee stiffness or loss of motion, anesthesia complications, stroke, heart attack , blood clot and . He wished to proceed. Intra-Operative Findings: Intraoperatively the patient was noted to have severe loss of cartilage in all 3 compartments of the knee. Description of the Procedure: NIKKO BERTRAND was identified in the preanesthesia unit. His left knee was marked as the correct operative side. Informed consent was signed and placed in the chart. The patient was taken to the operating room and placed under anesthesia without complication. A reveles catheter was placed. A tourniquet was placed on the left thigh. The left lower extremity was prepped and draped in the usual sterile fashion. Preoperative time-out was made to correctly identify the patient, side and site. Appropriate intraoperative antibiotics were given within one hour of incision. Tourniquet was inflated. A midline incision was made and carried sharply down to the extensor mechanism. A new 10 blade was used to make a standard medial parapatellar arthrotomy. The patella was subluxed laterally. Electrocautery was used to dissect soft tissue off the superomedial tibia to the midsagittal plane. The knee was flexed up. The anterior horn of the lateral meniscus and the ACL were sharply incised. A drill was used to enter the distal femur. The intramedullary distal femoral cutting guide was pinned on the distal femur. The oscillating saw was used to make the distal femoral cut. The external rotation guide was pinned on the distal femur and the distal femur was sized to a size 7. The size 7 multi-cutting jig was pinned on the distal femur. The oscillating saw was used to make the appropriate 4 chamfer cuts. Next the PCL was completely released. The extramedullary tibial cutting guide was pinned on the proximal tibia and the oscillating saw was used to make the proximal tibial cut perpendicular to the mechanical axis of the tibia. The bone was carefully removed. The knee was brought out into full extension. The spacer block was placed and had excellent fit with the knee in full extension. The medial and lateral ligaments were well balanced. The flexion and extension gaps were well balanced. The knee was flexed up. Lamina screen printing cloth spreader was placed both medially and laterally. Any remaining meniscus was removed with electrocautery. Curved osteotome was used to remove any posterior osteophytes. The tibial tray and drop lee were placed and confirmed a satisfactory tibial cut. The size 7 left femoral trial was impacted onto the distal femur. This trial had excellent fit and stability. The box for the posterior stabilized implant was prepared using a box cut osteotome and a reamer. Next a tibial tray trial and 9 mm insert trial was placed. The knee was taken through a range of motion and had full extension to 130 degrees of flexion. Patellofemoral tracking was satisfactory. The patella was inverted and sized to a size 35. Three peg holes were drilled through the size 35 drill guide. The trial patella was placed and the knee was taken through a range of motion. There was satisfactory patellofemoral tracking. All trials were removed. The tibia was subluxed anteriorly and sized to a size 6. The proximal tibial was prepared with a size 6 keel punch. All bony cut surfaces were irrigated with sterile saline and dried. Final implants were cemented into place starting with the tibia, followed by the femur, and last the patella. A 9 mm insert trial was placed and the knee was brought into full extension. Tourniquet was turned down and the knee was copiously irrigated with sterile saline. Electrocautery was used to obtain meticulous hemostasis. Once the cement had fully cured, the insert trial was removed. Any excess cement was removed from around the hardware and capsule. Final insert chosen was a 9 mm posterior stabilized Latha II articular insert size 5-6. Stability of the insert was checked and noted to be stable. The extensor mechanism was closed using number 1 vicryls. The rest of the incision was closed in a layered fashion using 0 and 2-0 vicryls. The skin was closed using 3-0 nylon suture. Sterile xeroform, 4x4s and webril were used to cover the incision. Chuck wrap and cold pack were used to cover the dressings. The patients anesthesia was reversed without difficulty. He was taken to the PACU in stable condition. Intended weight-bearing will be as tolerated.
--- NOTE | 2019-08-25 20:08 | CONS ---
CC: Dr. Sadler; Dr. Morel * CONSULTATION REPORT: DATE OF CONSULT: 08/25/19 PRIMARY CARE PROVIDER: Dr. Yousuf Sadler. PHYSICIAN REQUESTING CONSULT: Dr. Morel. REASON FOR CONSULT: The consult was requested for history of hypertension and hypothyroidism. CHIEF COMPLAINT: Left knee pain. HISTORY OF PRESENT ILLNESS: Sourav Ibrahim is a 63-year-old male with a history of hypothyroidism and hypertension and is being seen by medicine service status post left knee replacement. The patient is postoperatively doing very well and he wishes to go home tomorrow. Consult was requested in regards to medical management of the patient's hypertension. PAST MEDICAL HISTORY: 1. History of hypertension. 2. History of postsurgical hypothyroidism. 3. History of stage I thyroid cancer, removed. 4. History of hepatitis C, in remission, treated by Dr. Henao. 5. History of right foot surgery. 6. History of lumbar diskectomy. 7. The patient has a history of "coronary artery disease" in Dr. Sadler's note. The patient stated that he goes to see a air tube releaser for blood pressure management. He has never had a cardiac catheterization or abnormal stress test or WI as per the patient. MEDICATIONS: At home: 1. Levothyroxine 125 mcg daily. 2. Ibuprofen on a p.r.n. basis. 3. Hydrochlorothiazide 25 mg daily. 4. Atenolol 50 mg daily. 5. Tamsulosin 0.4 mg daily. 6. Ramipril 10 mg b.i.d. 7. Potassium chloride 20 mEq daily. ALLERGIES: ROSUVASTATIN causes palpitations. FAMILY HISTORY: Positive for father who of pancreatic cancer at the age of 66. Mother had no medical problems. One of the brothers from brain injury. SOCIAL HISTORY: The patient has a history of quitting smoking in June 2019, has a history of smoking most of his adult life until that time. Denies any alcohol or drug use. He is currently on disability and his is his surrogate. REVIEW OF SYSTEMS: Please see history of present illness. All the remaining 12 systems were reviewed with the patient and were otherwise negative. PHYSICAL EXAM: Blood pressure 132/81, heart rate of 53 and regular, respiratory rate 14, oxygen saturation 98% on room air, temperature of 97.2. General: The patient is a pleasant 63-year-old male who is in no acute distress , alert, awake, and oriented x3. HEENT: Head atraumatic, normocephalic. Eyes : Pupils equal and reactive to light and accommodation. Oropharynx clear. Mucosa moist. Neck: Supple. No JVD. No bruits bilaterally. Cardiovascular: Regular rate and rhythm. No murmur. Respiratory: Clear to auscultation bilaterally. Abdomen: Soft, nontender. Bowel sounds present in all 4 quadrants. Extremities: There is trace left ankle edema. Pulses +2 bilaterally. No clubbing or cyanosis. The left knee is in postoperative dressings and cryo unit and that was not removed for evaluation. LABORATORY DATA: None noted. ASSESSMENT AND PLAN: 1. In regards to the postoperative management status post left knee replacement , that is going to be left to the primary orthopedic service. 2. For the patient's hypertension, atenolol should be continued. We will continue holding the hydrochlorothiazide and ramipril for another day. The patient probably could restart it right after discharge to home. 3. For DVT prophylaxis, the patient is already on Eliquis as ordered by primary service. 4. The patient's levothyroxine is going to be continued from home for his hypothyroidism. 5. The patient's code status is full. His surrogate is his . Thank you very much for allowing us to see the patient in consultation. We will sign off now and we will follow on as needed basis. TIME SPENT: Approximately 55 minutes was spent on the consultation of this patient, more than half that time was spent [id number] with the patient during the interview and physical exam. [id number]/[facility] #: [id number] [place]
[2019-08-25] MEDS: ceFAZolin 1 GM ADVAN(*) 1 GM in NS 0.9% 50 ML* 50 ML IVPB SCH (20:53)
[2019-08-25] MEDS: Magnesium Hydroxide LIQ* 30 ML UDC PO SCH (20:54)
[2019-08-25] MEDS: Docusate CAP* 100 MG PO SCH (20:54)
[2019-08-25] MEDS: Acetaminophen TAB* 325 MG PO SCH (20:57)
[2019-08-25] MEDS ORDERED: Ramipril CAP* 10 MG PO SCH (21:00)
--- NOTE | 2019-08-25 22:58 | OP ---
ADDENDUM TO OPERATIVE NOTE TYPED BY PHYSICIAN ADDENDUM: Please add the addendum at the end of the report. DATE OF OPERATION: 08/25/19 SURGEON: Dr. Shanti Morel The patient had left total knee arthroplasty as dictated above. The patient did have the Picsean robotic navigation system used. He had 2 checkpoint screws placed with 4 pins 2 in the tibia, 2 in the femur. Tracking arrays were placed on the pins. The patient's anatomy was mapped intraoperatively to help decide hardware placement, sizes, and angulation of the cuts. At the end of the case, 2 screws and 4 pins were removed without complication. The patient had requested a right knee intraarticular injection under anesthesia. His right knee was sterilely prepped with alcohol. 80 mg Depo- Medrol and 6 cc of 1% Xylocaine were into the right knee joint. There were no complications. [id number]/[facility] #: [id number] MTDD
[2019-08-26] MEDS: oxyCODONE/Acetamin 5/325 MG* TAB PO PRN ×3 (01:42→13:38)
[2019-08-26] MEDS: ceFAZolin 1 GM ADVAN(*) 1 GM in NS 0.9% 50 ML* 50 ML IVPB SCH ×2 (04:32→12:25)
[2019-08-26] MEDS: Acetaminophen TAB* 325 MG PO SCH (05:06)
[2019-08-26] MEDS ORDERED: Levothyroxine TAB* 125 MCG TAB PO SCH (06:00)
[2019-08-26 08:23] LABS: Hematocrit 41 % (42-52); Hemoglobin 14.4 g/dL (14.0-18.0); Mean Platelet Volume 8.2 fL (7.4-10.4); Platelet Count 236 10^3/uL (150-450)
[2019-08-26 08:39] LABS: BUN/Creatinine Ratio 25.6 (8-20); Calcium 9.6 mg/dL (8.6-10.3); EGFR African American 102.8 (>60); Potassium 4.2 mmol/L (3.5-5.0)
[2019-08-26] MEDS: Docusate CAP* 100 MG PO SCH (08:51)
[2019-08-26] MEDS: Magnesium Hydroxide LIQ* 30 ML UDC PO SCH (08:52)
[2019-08-26] MEDS ORDERED: Hydrochlorothiazide TAB* 25 MG PO SCH (09:00)
[2019-08-26] MEDS ORDERED: Tamsulosin CAP* 0.4 MG PO SCH (09:00)
[2019-08-26] MEDS ORDERED: Apixaban* 2.5 MG TAB PO SCH (09:00)
[2019-08-26] MEDS ORDERED: Vitamin THERAPEUTIC TAB PO SCH (09:00)
[2019-08-26] MEDS ORDERED: Atenolol TAB* 50 MG PO SCH (09:00)
[2019-08-26] MEDS ORDERED: Potassium Chlor TAB* 20 MEQ TAB.ER PO SCH (09:00)
--- NOTE | 2019-08-26 11:36 | DS ---
Orthopedic Discharge Summary - Discharge Summary Date of Admission:08/25/19 Date of Discharge: 08/26/19 Date of Surgery: 08/25/19 Attending Orthopedic Provider: Dr Morel Pre-operative Diagnosis: Left knee osteoarthritis Operative Procedure: left total knee replacement Disposition of Patient: home with outpatient services Condition of Patient: stable History: NIKKO BERTRAND is a 63 year old M with years of increasingly severe left knee pain. Patient has failed conservative management and has elected to undergo a left total knee replacement Hospital Course: NIKKO was admitted to [facility] on 08/25/19. Patient underwent a left total knee replacement without complication followed by a brief recovery in PACU and transfer to the Short Stay Surgical Unit in stable condition. Our hospitalist service, physical therapy also participated in this patients care. Post-op day 1: patient was alert and in no acute distress. Dressing was clean, dry and intact. Operative extremity dorsiflexion and plantarflexion intact, sensation intact to light touch distally, DP2+. Prior to discharge: dressing was changed, incision was clean, dry and intact. Patient was deemed to be medically and orthopedically stable for discharge. Physical therapy goals were met. Home Medications Medication Instructions Recorded Confirmed Type Hydrochlorothiazide TAB* 25 mg PO QAM 07/09/18 08/25/19 History [Hydrodiuril TAB*] Levothyroxine Sodium [Synthroid] 125 mcg PO QAM 07/09/18 08/25/19 History Potassium Chloride 20 meq PO QAM 07/09/18 08/25/19 History Ramipril 10 mg PO BID 07/09/18 08/25/19 History atenoloL [Atenolol] 50 mg PO QAM 07/09/18 08/25/19 History Tamsulosin HCl 0.4 mg PO QAM 07/19/19 08/25/19 History Acetaminophen TAB* [Tylenol TAB*] 975 mg PO Q8HR tab 08/26/19 Rx Apixaban* [Eliquis*] 2.5 mg PO BID #60 tab 08/26/19 Rx Docusate CAP* [Colace Cap*] 100 mg PO BID PRN #90 cap 08/26/19 Rx oxyCODONE/Acetamin 5/325 MG* 1 tab PO Q4H PRN tab MDD 10 08/26/19 Rx [Percocet 5/325 TAB*] oxyCODONE/Acetamin 5/325 MG* 2 tab PO Q4H PRN #70 tab MDD 10 08/26/19 Rx [Percocet 5/325 TAB*] Discharge Instructions following Orthopedic Surgery: Activity: * Weight Bearing as tolerated * Continue physical therapy and occupational therapy exercises as shown * Start outpatient PT Wound care: * OK to shower on post-op day 3, no bathing, swimming, or submerging wound. * Use gentle soap, pat dry. Cover with gauze, SPIKE wrap or tape. Call Orthopedic office for: * Increased drainage * Redness * Increased pain * Fever Go to ER with shortness of breath or chest pain. Diet: * Regular diet * Increase fluids and fiber to prevent constipation. * Continue to use stool softeners, call office if no bowel motion within 48 hours. Medications See Home Medication List in your packet for medications that you should take after discharge. DVT Prophylaxis: Eliquis Dosin.5 mg, 1 tab every 12 hours x 30 days. Hold for sedation, wean off as soon as pain allows Pain Control: Percocet Dosin/325 mg 1-2 tabs by mouth every 4-6 hours as needed for pain. Maximum of 10 tabs per day. Hold for sedation, wean off as soon as pain allows. Please note that Percocet contains Tylenol (acetaminophen). Maximum daily dose of Tylenol is 4000 mg from all sources. Antibiotics are required prior to any dental work. Restart your ramipril and hydrochlorothiazide tomorrow morning 08/27/19 FOLLOW UP: Follow up with [Adriel ] Within 10-14 days, call for appointment Please call our office with any questions or concerns ([phone]) [place] [facility] [place]
[2019-08-26 11:41] VITALS: BP 134/65
== END 2019-08-26 14:00 | disposition home or self-care (01) | DRG 302 ==
LOC: AA 08-25 08:09 → SSU 08-25 14:35
PROVIDERS: ADMIT Orthopaedic Surgery Adult Reconstructive Orthopaedic Surgery; ATTEND Orthopaedic Surgery Adult Reconstructive Orthopaedic Surgery
PROC: 8E0Y0CZ Robotic Assisted Procedure of Lower Extremity, Open Approach (ICD-10-PCS; 2019-08-25)
PROC: 3E0U33Z Introduction of Anti-inflammatory into Joints, Percutaneous Approach (ICD-10-PCS; 2019-08-25)
PROC: 3E0U3BZ Introduction of Anesthetic Agent into Joints, Percutaneous Approach (ICD-10-PCS; 2019-08-25)
PROC: 0SRD0J9 Replacement of Left Knee Joint with Synthetic Substitute, Cemented, Open Approach (ICD-10-PCS; principal; 2019-08-25 10:30)
DX: M17.0 Bilateral primary osteoarthritis of knee (principal); I10 Essential (primary) hypertension; E89.0 Postprocedural hypothyroidism; E66.9 Obesity, unspecified; M25.762 Osteophyte, left knee; K21.9 Gastro-esophageal reflux disease without esophagitis; E78.5 Hyperlipidemia, unspecified; M25.462 Effusion, left knee; G89.29 Other chronic pain; M47.812 Spondylosis without myelopathy or radiculopathy, cervical region; Z85.850 Personal history of malignant neoplasm of thyroid; Z86.19 Personal history of other infectious and parasitic diseases; Z88.8 Allergy status to other drugs, medicaments and biological substances; Z87.891 Personal history of nicotine dependence; Z79.890 Hormone replacement therapy; Z68.36 Body mass index [BMI] 36.0-36.9, adult; Z79.899 Other long term (current) drug therapy
CPT/HCPCS: 36415; 80048; 85014; 85018; 85049; 88305; 88311; A9270-GY; C1776; G8978-GP-CK; G8979-GP-CI; J0690; J1040; J1100; J1885; J2250; J2405; J2704; J2795; J3010; J3490

== ENCOUNTER 2019-11-09 07:01 | Inpatient (IN) | payer BC ==
--- NOTE | 2019-10-25 15:59 | HP ---
PREOPERATIVE HISTORY AND PHYSICAL: DATE OF ADMISSION/SURGERY: 11/09/19 DATE OF OFFICE VISIT: 10/25/19 ATTENDING SURGEON: Dr. Shanti Morel.* (DICTATED BY DAISHA PHOENIX) PROCEDURE: Right total knee replacement. CHIEF COMPLAINT: Right knee pain. HISTORY OF PRESENT ILLNESS: Mr. Ibrahim is a 63-year-old male who presents to the clinic for end-stage right knee osteoarthritis. He has failed conservative measures to include NSAIDs, physical therapy, injections, and ambulatory assistive devices and has therefore agreed to undergo a right total knee replacement with Dr. Morel on 11/09/19. PAST MEDICAL HISTORY: Coronary artery disease; hypertension; high cholesterol; history of thyroid cancer, treated with thyroidectomy and radiation; history of hep C in the past that is treated, he now states he tests negative; cervical spondylosis without myelopathy; and traumatic peroneal nerve injury. PAST SURGICAL HISTORY: Thyroidectomy, back surgery in 1983, right foot surgery in 2018, left total knee arthroplasty and eye surgery. The patient denies prior complications with anesthesia. MEDICATIONS: 1. Levothyroxine 125 mcg 2 tabs every day. 2. Vitamin D 1000 units one daily. 3. Atenolol 50 mg one daily. 4. Ramipril 5 mg one daily. 5. Ibuprofen 200 mg 2 to 3 tabs every 6 hours as needed for pain. 6. Tamsulosin 0.4 mg one daily. 7. Hydrochlorothiazide 1 tab daily. 8. Klor-Con 10 mEq 1 daily. ALLERGIES: CRESTOR. FAMILY HISTORY: Positive for cancer, heart disease, macular degeneration. Denies family history of DVT or PE. SOCIAL HISTORY: He is retired. He denies alcohol consumption. He is a former smoker, he quit at the beginning of this month. He denies illegal drug use. REVIEW OF SYSTEMS: A 14-point review of systems was reviewed with the patient, positive for chronic pain, otherwise negative. Denies fevers, chills, chest pain, shortness of breath, history of bleeding disorder. Denies history of DVT or PE. Denies history of HIV. PHYSICAL EXAMINATION GENERAL: A 63-year-old well-developed, well-nourished male, in no acute distress. Alert and oriented x3. Appropriate mood and affect. Appropriate balance and coordination of the lower extremities. VITAL SIGNS: Height 70.5, weight 244, pulse 52, blood pressure 122/78, respiratory rate 18, BMI 34.5. HEENT: Normocephalic, atraumatic. PERRLA. Throat clear. NECK: Supple. PULMONARY: Lungs are clear to auscultation bilaterally. No wheezing, rhonchi, or rales. CARDIO: Regular rate and rhythm. S1 and S2. No murmurs, gallops, or rubs. No edema. ABDOMEN: Positive bowel sounds, soft and nontender. NEUROLOGIC: Alert and oriented x3. Cranial nerves grossly intact. MUSCULOSKELETAL: Right lower extremity: Skin is intact. No warmth or erythema. No abrasions or open wounds. No palpable masses or lymph nodes. Tenderness over the medial joint line. Moderate effusion. Range of motion 10 to 120. Stable varus and valgus stress. Calf soft and nontender. +2 DP pulses. Sensation is intact to light touch distally. STUDIES: Multi-view x-rays of the right knee revealed [id number] contact of the patellofemoral joint, advanced joint space narrowing in the medial compartment. IMPRESSION: Right knee end-stage osteoarthritis. PLAN/RECOMMENDATIONS: The patient is scheduled to undergo a right total knee replacement with Dr. Morel on 11/09/19. Percocet will be used for both postop pain management and Eliquis for DVT prophylaxis. He will follow up 10 to 14 days postop for followup and suture removal. DAISHA PHOENIX [id number]/[facility] #: [id number] [facility]
[~2019-11-09 07:01] MED LIST changes: +Acetaminophen TAB* 325 MG PO ONE; -Buffered Lidocaine 0.9% SYRIN* 5 ML/SYR SYRINGE INTRADERM ONE; +Buffered Lidocaine 1% SYRIN* 1 ML/SYRINGE INTRADERM ONE; -Famotidine IV* 10 MG/ML 2 ML (20 mg) IV ONE; +Gabapentin CAP(*) 300 MG PO ONE; +Lactated Ringers 1000 ML Bag* 1,000 ML IV SCH; +Tranexamic Acid 1,000 MG in NS 0.9% 50 ML* (outpatient use) IV SCH; +celeCOXIB CAP* 200 MG PO ONE
--- OUTSIDE RECORDS SUMMARY | 2019-11-09 07:05 | XMS REPORT | Continuity of Care Document ---
:1955 External Reference #:[id number] Author Name Shanti Morel M.D. 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 Tamsulosin HCL 1 by mouth Unknown 0.4mg Capsules every day Hydrochlorothiazide 1 tablet daily Unknown Klor-Con 10 1 by mouth Unknown 10Meq Tablets ER every day History Medications Eliquis take one tab by 60tabs Shanti Adriel, 09/20/2019 - 2.5mg Tablets mouth twice daily x M.D. 09/26/2019 4 weeks Eliquis take one tab by 60tabs Shanti Adriel, 09/20/2019 - 2.5mg Tablets mouth twice daily x M.D. 09/19/2019 4 weeks Augmentin take 1 by mouth 14tabs Shanti Adriel, 09/20/2019 - 875-125mg twice a day for 7 M.D. 10/24/2019 Tablets days Percocet 1 - 2 tabs by mouth 60tabs Shanti Adriel, 09/06/2019 - 5-325mg every 4 - 6 hours M.D. 09/26/2019 Tablets as needed for pain. Percocet take 1-2 tabs by 70tabs Shanti Adriel, 08/26/2019 - 5-325mg mouth q4-6 hours as M.D. 09/05/2019 Tablets needed pain patient has been taking for post op pain in the hospital Eliquis take 1 tablet by 60tabs Shanti Morel, 08/26/2019 - 2.5mg Tablets mouth twice a day M.D. 09/05/2019 Medications Administered in Office Medication SIG Qnty Indications Ordering Provider Date Triamcinolone (Kenalog) Rk Barton MD 01/29/2019 Injection Records Fee Rk Barton MD 01/20/2019 Injection Triamcinolone (Kenalog) Rk Barton MD 11/27/2018 Injection Immunizations Description No Information Available Vital Signs Date Vital Result Comment 10/25/2019 11:42am Height 70.5 inches 5'10.50" Weight 244.00 lb Heart Rate 52 /min BP Systolic 122 mmHg BP Diastolic 78 mmHg Respiratory Rate 18 /min Pain Level 1 BMI (Body Mass Index) 34.5 kg/m2 10/13/2019 8:37am Height 70.5 inches 5'10.50" Weight 244.00 lb Heart Rate 64 /min BP Systolic 121 mmHg BP Diastolic 82 mmHg Body Temperature 96.5 F Pain Level 0 BMI (Body Mass Index) 34.5 kg/m2 Results Test Acquired Date Facility Test Result H/L Range Note CBC Auto 08/16/2019 [facility] White Blood 11.9 10^3/uL High 3.5-10.[address] [place] [address] [phone] Red Blood Count 5.30 10^6/uL Normal 4.18-5.48 [...] Blood Cells % 0.1 Urinalysis Profile 08/16/2019 [facility] Urine Color Yellow [address] [place] [address] [phone] Urine Appearance Clear Urine Specific Davis 1.016 Normal 1.010-1.030 Urine pH 7.0 Normal 5-9 Urine Urobilinogen Negative Negative Urine Ketones Negative Negative Urine Protein Negative Negative Urine Leukocytes Negative Negative Urine Blood Negative Negative Urine Nitrite Negative Negative Urine Bilirubin Negative Negative Urine Glucose Negative Negative Comp Metabolic 08/16/2019 [facility] Sodium 137 mmol/L Normal 135-[address] [place] [address] [phone] Potassium 4.2 mmol/L Normal 3.5-5.0 Chloride 102 [...] >60 Egfr 96.6 >60 1 Inr/Protime 08/16/2019 [facility] Inr 1.11 High 0.82-1.[address] [place] [address] [phone] Laboratory test 08/16/2019 [facility] Partial 40.3 seconds High 26.0-38.[address] [place] [address] Time PTT [phone] Type & Screen 08/16/2019 [facility] Patient B Positive [address] [place] [address] [phone] Antibody Screen NEGATIVE Urine Culture And 08/16/2019 [facility] Urine SEE RESULT [address] Culture BELOW [place], [place] [address] [phone] Inr/Protime 07/19/2019 [facility] Inr 1.10 High 0.[address] -1.0 [place] [address] 9 [phone] Laboratory test 07/19/2019 [facility] Partial 41.9 seconds High 26.[address] Thrombo Time -38. [place] [address] PTT 0 [phone] CBC Auto Diff 07/19/2019 [facility] White Blood 9.0 10^3/uL Normal 3.5- [address] Count 10.8 [place], [place] [id number] [phone] Red Blood Count 5.35 10^6/uL Normal 4.18-5.48 [...] Blood Cells % 0.5 Urinalysis Profile 07/19/2019 [facility] Urine Color Yellow [address] [place] [address] [phone] Urine Appearance Clear Urine Specific Davis 1.010 Normal 1.010-1.030 Urine pH 7.0 Normal 5-9 Urine Urobilinogen Negative Negative Urine Ketones Negative Negative Urine Protein Negative Negative Urine Leukocytes Negative Negative Urine Blood Negative Negative Urine Nitrite Negative Negative Urine Bilirubin Negative Negative Urine Glucose Negative Negative Type & Screen 07/19/2019 [facility] Patient Blood Type B Positive [address] [place] [address] [phone] Antibody Screen NEGATIVE Comp Metabolic 07/19/2019 [facility] Sodium 139 mmol/L Normal 135-145 Panel [address] [place] [address] [phone] Potassium 4.1 mmol/L Normal 3.5-5.0 Chloride 103 [...] 116.1 >60 5 Urine Culture And 07/19/2019 [facility] Urine Culture SEE RESULT [address] [place] [address] [phone] 1 Because ethnic data is not always [...] range: 2.5-3.5 3 SEE RESULT BELOW Name: NIKKO IBRAHIM : [address]: Shanti Morel MD Acct: [id number] Unit: [id number] AGE: 63 Location: [facility] Re08/16/19 SEX: M Status: REG REF SPEC: [id number] GENE: 08/16/[address] [facility] [address]: Shanti Morel MD REQ: [id number] RECD: 08/16/19 STATUS: COMP _ SOURCE: URINE SPDESC: ORDERED: Urine Culture QUERIES: Urine Source: Clean Catch Procedure Result Reported Site Urine Culture Final 08/17/19- 1418 ML No Growth (<1,000 CFU/mL) * - [facility] . END OF REPORT DEPARTMENT OF PATHOLOGY, [address] [place] [address] Todd Mckay M.D. Director [facility] # [id number] 4 Standard intensity warfarin therapeutic range: 2.0-3.0 [...] (or dialysis) 6 SEE RESULT BELOW Name: NIKKO IBRAHIM : [address]: Shanti Morel MD Acct: [id number] Unit: [id number] AGE: 63 Location: PAT Re07/19/19 SEX: M Status: REG REF SPEC: [id number] GENE: 07/19/19-[address]: Shanti Morel MD REQ: [id number] RECD: 07/19/19 STATUS:COMP _ SOURCE: URINE SPDESC: ORDERED: Urine Culture QUERIES: Urine Source: Random Procedure Result Reported Site Urine Culture Final 07/20/19- 1252 ML No growth of clinically significant organisms * ML - Main Lab . END OF REPORT DEPARTMENT OF PATHOLOGY, [address] [place] [address] Todd Mckay M.D. Director [facility] # [id number] Procedures Date Code Description Status 08/25/2019 18454 TKR Total Knee Replacement Completed 08/25/2019 27496 TKR Total Knee Replacement Completed 07/19/2019 77070 EKG, Interpretation Only Completed Medical Devices Description No Information Available Encounters Type Date Location Provider Dx Diagnosis Office Visit 09/20/2019 [facility] Shanti Morel, M17.12 Unilateral primary 1:00p at [place] M.DMeri osteoarthritis, left knee M25.562 Pain in left knee Z47.1 Aftercare following joint replacement surgery M25.561 Pain in right knee M25.461 Effusion, right knee M17.11 Unilateral primary osteoarthritis, right knee Office Visit 08/25/2019 10:36a [facility] Ofelia Aguayo, [facility],tarah Lopez (primary) Hospitalists hypertension E03.9 Hypothyroidism, unspecified Office Visit 08/06/2019 Maricarmen Barton, S94.21xD Injury of deep 8:30a Orthopedics at [facility] at [place] ank/ft level, right leg, subs Office Visit 05/26/2019 Maricarmen Morel M17.12 Unilateral 8:00a Orthopedics jose Lopez primary [place] osteoarthritis, left knee M25.562 Pain in left knee M25.462 Effusion, left knee Office Visit 05/07/2019 9:30a Maricarmen Barton S94.21xD Injury of deep Orthopedics at [facility] [place] at ank/ft level, right leg, subs S94.21xD Injury of deep peroneal nrv at ank/ft level, right leg, subs Office Visit 05/07/2019 Maricarmen Barton, M17.12 Unilateral primary 9:15a Orthopedics at osteoarthritis, left [place] knee Assessments Date Code Description Provider 10/13/2019 Z47.1 Aftercare following joint Shanti Morel M.D. replacement surgery 10/13/2019 Z96.652 Presence of left artificial knee Shanti Morel M.D. joint 09/27/2019 M17.12 Unilateral primary osteoarthritis, Shanti Morel M.D. left knee 09/27/2019 M25.562 Pain in left knee Shanti Morel M.D. 09/27/2019 Z47.1 Aftercare following joint Shanti Morel M.D. replacement surgery 09/27/2019 Z96.652 Presence of left artificial knee Shanti Morel M.D. joint 09/20/2019 M17.12 Unilateral primary osteoarthritis, Shanti Morel M.D. left knee 09/20/2019 M25.562 Pain in left knee Shanti Morel M.D. 09/20/2019 Z47.1 Aftercare following joint Shanti Morel M.D. replacement surgery 09/20/2019 M25.561 Pain in right knee Shanti Morel M.D. 09/20/2019 M25.461 Effusion, right knee Shanti Morel M.D. 09/20/2019 M17.11 Unilateral primary osteoarthritis, Shanti Morel M.D. right knee 09/06/2019 M17.12 Unilateral primary osteoarthritis, Shanti Morel M.D. left knee 09/06/2019 M25.562 Pain in left knee Shanti Morel M.D. 09/06/2019 M25.462 Effusion, left knee Shanti Morel M.D. 09/06/2019 Z47.1 Aftercare following joint Shanti Morel M.D. replacement surgery 09/06/2019 Z96.652 Presence of left artificial knee Shanti Morel M.D. joint 08/25/2019 [facility] (primary) hypertension Ofelia Aguayo M.D. 08/25/2019 E03.9 Hypothyroidism, unspecified Ofelia Aguayo M.D. 08/25/2019 M17.12 Unilateral primary osteoarthritis, Earl Mijares , RPA-C left knee 08/25/2019 M17.12 Unilateral primary osteoarthritis, Shanti Morel M.D. left knee 08/18/2019 M17.12 Unilateral primary osteoarthritis, Shanti Morel M.D. left knee 08/18/2019 M25.562 Pain in left knee Shanti Morel M.D. 08/18/2019 M25.462 Effusion, left knee Shanti Morel M.D. 08/06/2019 S94.21xD Injury of deep peroneal nerve at Rk Barton MD ankle and foot level, right leg, subsequent encounter 07/19/2019 R00.1 Bradycardia, unspecified Charito Gilbert M.D. 07/19/2019 M17.12 Unilateral primary osteoarthritis, Shanti Morel M.D. left knee 07/19/2019 M25.562 Pain in left knee Shanti Morel M.D. 07/19/2019 M25.462 Effusion, left knee Shanti Morel M.D. 05/26/2019 M17.12 Unilateral primary osteoarthritis, Shanti Morel M.D. left knee 05/26/2019 M25.562 Pain in left knee Shanti Morel M.D. 05/26/2019 M25.462 Effusion, left knee Shanti Morel M.D. 05/07/2019 S94.21xD Injury of deep peroneal nerve at Rk Barton MD ankle and foot level, right leg, subsequent encounter 05/07/2019 S94.21xD Injury of deep peroneal nerve at Rk Barton MD ankle and foot level, right leg, subsequent encounter 05/07/2019 M17.12 Unilateral primary osteoarthritis, Rk Barton MD left knee Plan of Treatment Future Appointment(s):11/09/2019 8:30 am - RIGOBERTO Crenshaw at [facility] at [id number]/09/2019 8:30 am - DAISHA Santos at [facility] at [id number]/09/2019 8:30 am - Shanti Morel M.D. at [facility] at [id number]/22/2019 8:45 am - Shanti Morel M.D. at [facility] Functional Status Description No Information Available Mental Status Description No Information Available Referrals Description No Information Available
--- OUTSIDE RECORDS SUMMARY | 2019-11-09 07:05 | XMS REPORT | Continuity of Care Document ---
:1955 External Reference #:[id number] Author Name Shanti Morel M.D. 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 day for 7 days Levothyroxine Sodium 2 by mouth Unknown 125mcg every day Tablets Vitamin D 1 every day Unknown (Cholecalciferol) 1000Unit Tablets Atenolol 1 by mouth Unknown 50mg Tablets every day Ramipril 1 by mouth Unknown 5mg Capsules every day Aleve 2 tablets as Unknown 220mg Tablets needed for pain Ibuprofen 200 400-600mg Unknown 200mg Tablets every 6 hours as needed for pain. Tamsulosin HCL 1 by mouth Unknown 0.4mg Capsules every day Hydrochlorothiazide Unknown Klor-Con 10 1 by mouth Unknown 10Meq Tablets ER every day History Medications Eliquis take one tab by 60tabs Shanti Morel, 09/20/2019 - 2.5mg mouth twice daily x M.D. 09/26/2019 Tablets 4 weeks Eliquis take one tab by 60tabs Shanti Morel, 09/20/2019 - 2.5mg mouth twice daily x M.D. 09/19/2019 Tablets 4 weeks Percocet 1 - 2 tabs by mouth 60tabs Shanti Adriel, 09/06/2019 - 5-325mg every 4 - 6 hours M.D. 09/26/2019 Tablets as needed for pain. Percocet take 1-2 tabs by 70tabs Shanti Morel, 08/26/2019 - 5-325mg mouth q4-6 hours as M.D. 09/05/2019 Tablets needed pain patient has been taking for post op pain in the hospital Eliquis take 1 tablet by 60tabs Shanti Morel, 08/26/2019 - 2.5mg mouth twice a day M.D. 09/05/2019 Tablets Medications Administered in Office Medication SIG Qnty Indications Ordering Provider Date Triamcinolone (Kenalog) Rk Barton MD 01/29/2019 Injection Records Fee Rk Barton MD 01/20/2019 Injection Triamcinolone (Kenalog) Rk Barton MD 11/27/2018 Injection Immunizations Description No Information Available Vital Signs Date Vital Result Comment 10/13/2019 8:37am Height 70.5 inches 5'10.50" Weight 244.00 lb Heart Rate 64 /min BP Systolic 121 mmHg BP Diastolic 82 mmHg Body Temperature 96.5 F Pain Level 0 BMI (Body Mass Index) 34.5 kg/m2 09/27/2019 8:15am Height 70.5 inches 5'10.50" Weight 244.00 lb Heart Rate 58 /min BP Systolic 110 mmHg BP Diastolic 64 mmHg Body Temperature 95.4 F Pain Level 1 BMI (Body Mass Index) 34.5 kg/m2 Results Test Acquired Date Facility Test Result H/L Range Note CBC Auto 08/16/2019 [facility] White Blood 11.9 10^3/uL High 3.5-10.[address] [place] [address] [phone] Red Blood Count 5.30 10^6/uL Normal 4.18-5.48 [...] % 0.1 Urinalysis Profile 08/16/2019 [facility] Urine Color Yellow [address] [place] [address] [phone] Urine Appearance Clear Urine Specific [place] 1.016 Normal 1.010-1.030 Urine pH 7.0 Normal 5-9 Urine Urobilinogen Negative Negative Urine Ketones Negative Negative Urine Protein Negative Negative Urine Leukocytes Negative Negative Urine Blood Negative Negative Urine Nitrite Negative Negative Urine Bilirubin Negative Negative Urine Glucose Negative Negative Comp Metabolic 08/16/2019 [facility] Sodium 137 mmol/L Normal 135-[address] [place] [address] [phone] Potassium 4.2 mmol/L Normal 3.5-5.0 Chloride 102 [...] 96.6 >60 1 Inr/Protime 08/16/2019 [facility] Inr 1.11 High 0.82-1.[address] [place] [address] [phone] Laboratory test 08/16/2019 [facility] Partial 40.3 seconds High 26.0-38.[address] [place] [address] Time PTT [phone] Type & Screen 08/16/2019 [facility] Patient B Positive [address] [place] [address] [phone] Antibody Screen NEGATIVE Urine Culture And 08/16/2019 [facility] Urine SEE RESULT [address] [place] [address] [phone] Inr/Protime 07/19/2019 [facility] Inr 1.10 High 0.[address] -1.0 [place] [address] 9 [phone] Laboratory test 07/19/2019 [facility] Partial 41.9 seconds High 26.[address] [place] Time -[address]. [place] [address] PTT 0 [phone] CBC Auto Diff 07/19/2019 [facility] White Blood 9.0 10^3/uL Normal 3.5- [address] Count 10.8 [place], [place] [address]69 [phone] Red Blood Count 5.35 10^6/uL Normal 4.18-5.48 [...] % 0.5 Urinalysis Profile 07/19/2019 [facility] Urine Color Yellow [address] [place] [address] [phone] Urine Appearance Clear Urine Specific [place] 1.010 Normal 1.010-1.030 Urine pH 7.0 Normal 5-9 Urine Urobilinogen Negative Negative Urine Ketones Negative Negative Urine Protein Negative Negative Urine Leukocytes Negative Negative Urine Blood Negative Negative Urine Nitrite Negative Negative Urine Bilirubin Negative Negative Urine Glucose Negative Negative Type & Screen 07/19/2019 [facility] Patient Blood Type B Positive [address] [place] [address] [phone] Antibody Screen NEGATIVE Comp Metabolic 07/19/2019 [facility] Sodium 139 mmol/L Normal 135-[address] [place] [address] [phone] Potassium 4.1 mmol/L Normal 3.5-5.0 Chloride 103 [...] 5 Urine Culture And 07/19/2019 [facility] Urine Culture SEE RESULT [address] [place] [address] [phone] 1 Because ethnic data is not always [...] [address]: Shanti Morel MD Acct: [id number] Unit: [id number] AGE: 63 Location: PAT Re08/16/19 SEX: M Status: REG REF SPEC: [id number] GENE: 08/16/19-[address]: Shanti Morel MD REQ: [id number] RECD: 08/16/19 STATUS: COMP _ SOURCE: URINE SPDESC: ORDERED: Urine Culture QUERIES: Urine Source: Clean Catch Procedure Result Reported Site Urine Culture Final 08/17/19- 1418 ML No Growth (<1,000 CFU/mL) * ML - Main Lab . END OF REPORT DEPARTMENT OF PATHOLOGY, [address] [place] [address] Todd Mckay M.D. Director [facility] # [id number] 4 Standard intensity warfarin therapeutic range: 2.0-3.0 [...] [address]: Shanti Morel MD Acct: [id number] Unit: [id number] AGE: 63 Location: PAT Re07/19/19 SEX: M Status: REG REF SPEC: [id number] GENE: 07/19/19-1050 [facility] DR: Shanti Morel MD REQ: [id number] RECD: 07/19/19 STATUS:COMP _ SOURCE: URINE SPDESC: ORDERED: Urine Culture QUERIES: Urine Source: Random Procedure Result Reported Site Urine Culture Final 07/20/19- 1252 ML No growth of clinically significant organisms * ML - Main Lab . END OF REPORT DEPARTMENT OF PATHOLOGY, [address] [place] [address] Todd Mckay M.D. Director [facility] # [id number] Procedures Date Code Description Status 08/25/2019 46363 TKR Total Knee Replacement Completed 08/25/2019 37810 TKR Total Knee Replacement Completed 07/19/2019 60051 EKG, Interpretation Only Completed Medical Devices Description No Information Available Encounters Type Date Location Provider Dx Diagnosis Office Visit 09/20/2019 [facility] Shanti Morel, M17.12 Unilateral primary 1:00p at [place] M.DMeri osteoarthritis, left knee M25.562 Pain in left knee Z47.1 Aftercare following joint replacement surgery M25.561 Pain in right knee M25.461 Effusion, right knee M17.11 Unilateral primary osteoarthritis, right knee Office Visit 08/25/2019 10:36a [facility] Ofelia Aguayo, [facility],tarah Lopez (primary) Hospitalists hypertension E03.9 Hypothyroidism, unspecified Office Visit 08/06/2019 [facility], S94.21xD Injury of deep 8:30a Orthopedics at MD hernandezonealex nryanet at [place] ank/ft level, right leg, subs Office Visit 05/26/2019 Maricarmen Morel, M17.12 Unilateral 8:00a Orthopedics at [facility]urt primary [place] osteoarthritis, left knee M25.562 Pain in left knee M25.462 Effusion, left knee Office Visit 05/07/2019 9:30a Maricarmen Barton S94.21xD Injury of deep Orthopedics at MD hernandezonealex nryanet [place] at ank/ft level, right leg, subs S94.21xD Injury of deep peroneal nrv at ank/ft level, right leg, subs Office Visit 05/07/2019 Mar[facility] Barton, M17.12 Unilateral primary 9:15a Orthopedics at osteoarthritis, left [place] knee Assessments Date Code Description Provider 10/13/2019 Z47.1 Aftercare following joint Shanti Morel M.D. replacement surgery 09/27/2019 M17.12 Unilateral primary osteoarthritis, Shanti Morel [...] M17.12 Unilateral primary osteoarthritis, Earl Mijares , [facility] left knee 08/25/2019 M17.12 Unilateral primary osteoarthritis, [...] MD left knee Plan of Treatment Future Appointment(s):10/25/2019 11:15 am - Shanti Morel M.D. at [facility] at Dmxgfu8411/09/2019 8:30 am - Shanti Morel M.D. at [facility] at Dfpmnn6411/22/2019 8:45 am - Shanti Morel M.D. at [facility] at Bhjfcf2410/13/2019 - Shanti Morel M.D.Z47.1 Aftercare following joint replacement surgeryFollow up:Follow up: for H&P right knee Functional Status Description No Information Available Mental Status Description No Information Available Referrals Description No Information Available
--- OUTSIDE RECORDS SUMMARY | 2019-11-09 07:05 | XMS REPORT | Continuity of Care Document ---
:1955 External Reference #:[id number] Author Name Shanti Morel M.D. 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 daily x 4 weeks Augmentin take 1 by 14tabs Shanti Morel, 09/20/2019 875-125mg Tablets mouth twice a M.D. day for 7 days Percocet 1 - 2 tabs by 60tabs Shanti Morel, 09/06/2019 5-325mg Tablets mouth every 4 M.D. - 6 hours as needed for pain. Levothyroxine Sodium 2 by mouth Unknown 125mcg [...] Medications Eliquis take one tab by 60tabs Shatni Morel, 09/20/2019 - 2.5mg mouth twice daily x M.D. 09/19/2019 Tablets 4 weeks Percocet take 1-2 tabs by 70tabs Shanti [...] Available Vital Signs Date Vital Result Comment 09/20/2019 1:21pm Height 70.5 inches 5'10.50" Weight 250.00 lb Heart Rate 84 /min Body Temperature 96.3 F O2 % BldC Oximetry 98 % BMI (Body Mass Index) 35.4 kg/m2 09/06/2019 2:44pm Height 70.5 inches 5'10.50" Weight 250.00 lb Heart Rate 60 /min BP Systolic 114 mmHg BP Diastolic 78 mmHg Respiratory Rate 14 /min Body Temperature 98.6 F Pain Level 4 BMI (Body Mass Index) 35.4 kg/m2 Results Test Acquired Date Facility Test Result H/L Range Note CBC Auto 08/16/2019 [facility] White Blood 11.9 10^3/uL High 3.5-10.[address] [place] [address] [phone] Red Blood Count 5.30 10^6/uL Normal 4.18-5.48 [...] Blood Cells % 0.1 Urinalysis Profile 08/16/2019 [facility] Urine Color Yellow [address] [place] [address] [phone] Urine Appearance Clear Urine Specific [place] 1.016 Normal 1.010-1.030 Urine pH 7.0 Normal 5-9 Urine Urobilinogen Negative Negative Urine Ketones Negative Negative Urine Protein Negative Negative Urine Leukocytes Negative Negative Urine Blood Negative Negative Urine Nitrite Negative Negative Urine Bilirubin Negative Negative Urine Glucose Negative Negative Comp Metabolic 08/16/2019 [facility] Sodium 137 mmol/L Normal 135-[address] [place] [address] [phone] Potassium 4.2 mmol/L Normal 3.5-5.0 Chloride 102 [...] >60 Egfr 96.6 >60 1 Inr/Protime 08/16/2019 [facility] Inr 1.11 High 0.82-1.[address] [place] [address] [phone] Laboratory test 08/16/2019 [facility] Partial 40.3 seconds High 26.0-38.[address] [place] [address] Time PTT [phone] Type & Screen 08/16/2019 [facility] Patient B Positive [address] [place] [place] [address] [phone] Antibody Screen NEGATIVE Urine Culture And 08/16/2019 [facility] Urine SEE RESULT [address] Culture BELOW [place], [place] [address] [phone] Inr/Protime 07/19/2019 [facility] Inr 1.10 High 0.[address] -1.0 [place] [address] 9 [phone] Laboratory test 07/19/2019 [facility] Partial 41.9 seconds High 26.[address] [place] Time -[address]. [place] [address] PTT 0 [phone] CBC Auto Diff 07/19/2019 [facility] White Blood 9.0 10^3/uL Normal 3.5- [address] Count 10.8 [place], [place] [address] [phone] Red Blood Count 5.35 10^6/uL Normal 4.18-5.48 [...] Blood Cells % 0.5 Urinalysis Profile 07/19/2019 [facility] Urine Color Yellow [address] [place] [address] [phone] Urine Appearance Clear Urine Specific [place] 1.010 Normal 1.010-1.030 Urine pH 7.0 Normal 5-9 Urine Urobilinogen Negative Negative Urine Ketones Negative Negative Urine Protein Negative Negative Urine Leukocytes Negative Negative Urine Blood Negative Negative Urine Nitrite Negative Negative Urine Bilirubin Negative Negative Urine Glucose Negative Negative Type & Screen 07/19/2019 [facility] Patient Blood Type B Positive [address] [place] [address] [phone] Antibody Screen NEGATIVE Comp Metabolic 07/19/2019 [facility] Sodium 139 mmol/L Normal 135-[address] [place] [address] [phone] Potassium 4.1 mmol/L Normal 3.5-5.0 Chloride 103 [...] 116.1 >60 5 Urine Culture And 07/19/2019 [facility] Urine Culture SEE RESULT [address] [place] [address] [phone] 1 Because ethnic data is not always [...] [address]: Shanti Morel MD Acct: [id number] Unit: [id number] AGE: 63 Location: PAT Re08/16/19 SEX: M Status: REG REF SPEC: [id number] GENE: 08/16/19 [facility] DR: Shanti Morel MD REQ: [id number] RECD: 08/16/19 STATUS: COMP _ SOURCE: URINE SPDESC: ORDERED: Urine Culture QUERIES: Urine Source: Clean Catch Procedure Result Reported Site Urine Culture Final 08/17/19- 1418 ML No Growth (<1,000 CFU/mL) * ML - [facility] . END OF REPORT DEPARTMENT OF PATHOLOGY, [address] [place] [address] Todd Mckay M.D. Director [facility] # [id number] 4 Standard intensity warfarin therapeutic range: 2.0-3.0 [...] [address]: Shanti Morel MD Acct: [id number] Unit: [id number] AGE: 63 Location: PAT Re07/19/19 SEX: M Status: REG REF SPEC: [id number] GENE: 07/19/19-[address]: Shanti Morel MD REQ: [id number] RECD: 07/19/19 STATUS:COMP _ SOURCE: URINE SPDESC: ORDERED: Urine Culture QUERIES: Urine Source: Random Procedure Result Reported Site Urine Culture Final 07/20/19- 1252 ML No growth of clinically significant organisms * ML - Main Lab . END OF REPORT DEPARTMENT OF PATHOLOGY, [address] [place] [address] Todd Mckay M.D. Director [facility] # [id number] Procedures Date Code Description Status 08/25/2019 36660 TKR Total Knee Replacement Completed 08/25/2019 77664 TKR Total Knee Replacement Completed 07/19/2019 20106 EKG, Interpretation Only Completed Medical Devices Description No Information Available Encounters Type Date Location Provider Dx Diagnosis Office Visit 09/20/2019 [facility] Bernarda Sykes7.12 Unilateral primary 1:00p at [place] M.DMeri osteoarthritis, left knee M25.562 Pain in left knee Z47.1 Aftercare following joint replacement surgery M25.561 Pain in right knee M25.461 Effusion, right knee M17.11 Unilateral primary osteoarthritis, right knee Office Visit 08/25/2019 10:36a [facility] Ofelia Aguayo, [facility],tarah Lopez (primary) Hospitalists hypertension E03.9 Hypothyroidism, unspecified Office Visit 08/06/2019 [facility], S94.21xD Injury of deep 8:30a Orthopedics at peronealex nrv at [place] ank/ft level, right leg, subs Office Visit 05/26/2019 Maricarmen Morel M17.12 Unilateral 8:00a Orthopedics jose Lopez primary [place] osteoarthritis, left knee M25.562 Pain in left knee M25.462 Effusion, left knee Office Visit 05/07/2019 9:30a Maricarmen Barton S94.21xD Injury of deep Orthopedics at peroneal nrv [place] at ank/ft level, right leg, subs S94.21xD Injury of deep peroneal nrv at ank/ft level, right leg, subs Office Visit 05/07/2019 Maricarmen Barton M17.12 Unilateral primary 9:15a Orthopedics at osteoarthritis, left [place] knee Assessments Date Code Description Provider 09/20/2019 M17.12 Unilateral primary osteoarthritis, Shanti Morel [...] M25.462 Effusion, left knee Shanti Morel M.D. 08/25/2019 [facility] (primary) hypertension Ofelia Aguayo M.D. 08/25/2019 E03.9 Hypothyroidism, unspecified Ofelia Aguayo M.D. 08/25/2019 M17.12 Unilateral primary osteoarthritis, Ealr Mijares , [facility] left knee 08/25/2019 M17.12 Unilateral primary osteoarthritis, [...] of Treatment Future Appointment(s):11/09/2019 8:30 am - Shanti Morel M.D. at [facility] at Oxnjeu1011/22/2019 8:45 am - Shanti Morel M.D. at [facility] at Mqbwgk4010/06/2019 9:30 am - Shanti Morel M.D. at [facility] at Yggmfx6609/20/2019 - Shanti Morel M.D.M17.12 Unilateral primary osteoarthritis, left kneeFollow up:Follow up: 1 weekM25.562 Pain in left kneeZ47.1 Aftercare following joint replacement cyuxajjF90.561 Pain in right kneeFollow up:Follow up: 7-10 days before ixgeiojO48.461 Effusion, right kneeM17.11 Unilateral primary osteoarthritis, right knee Functional Status Description No Information Available Mental Status Description No Information Available Referrals Description No Information Available
--- OUTSIDE RECORDS SUMMARY | 2019-11-09 07:05 | XMS REPORT | Continuity of Care Document ---
:1955 External Reference #:[id number] Author Name Shanti Morel M.D. 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 [phone] Problems Active Problems Provider Date Plantar nerve [...] Use Denies Drug Use Smoking Status Reviewed: 09/27/19 Patient is a current smoker, smokes some [...] - 2 tabs by mouth 60tabs Shanti Morel, 09/06/2019 - 5-325mg every 4 - 6 [...] Available Vital Signs Date Vital Result Comment 09/27/2019 8:15am Height 70.5 inches 5'10.50" Weight 244.00 lb Heart Rate 58 /min BP Systolic 110 mmHg BP Diastolic 64 mmHg Body Temperature 95.4 F Pain Level 1 BMI (Body Mass Index) 34.5 kg/m2 09/20/2019 1:21pm Height 70.5 inches 5'10.50" Weight 250.00 lb Heart Rate 84 /min Body Temperature 96.3 F O2 % BldC Oximetry 98 % BMI (Body Mass Index) 35.4 kg/m2 Results Test Acquired Date Facility Test Result H/L Range Note CBC Auto 08/16/2019 [facility] White Blood 11.9 10^3/uL High 3.5-10.[address] [place] [address] [phone] Red Blood Count 5.30 10^6/uL Normal 4.18-5.48 [...] Blood Cells % 0.1 Urinalysis Profile 08/16/2019 [facility] Urine Color Yellow [address] [place] [address] [phone] Urine Appearance Clear Urine Specific [place] 1.016 Normal 1.010-1.030 Urine pH 7.0 Normal 5-9 Urine Urobilinogen Negative Negative Urine Ketones Negative Negative Urine Protein Negative Negative Urine Leukocytes Negative Negative Urine Blood Negative Negative Urine Nitrite Negative Negative Urine Bilirubin Negative Negative Urine Glucose Negative Negative Comp Metabolic 08/16/2019 [facility] Sodium 137 mmol/L Normal 135-[address] [place] [address] [phone] Potassium 4.2 mmol/L Normal 3.5-5.0 Chloride 102 [...] >60 Egfr 96.6 >60 1 Inr/Protime 08/16/2019 [facility] Inr 1.11 High 0.82-1.[address] [place] [address] [phone] Laboratory test 08/16/2019 [facility] Partial 40.3 seconds High 26.0-38.[address] [place] [address] Time PTT [phone] Type & Screen 08/16/2019 [facility] Patient B Positive [address] Blood Type [place], [place] [address] [phone] Antibody Screen NEGATIVE Urine Culture And 08/16/2019 [facility] Urine SEE RESULT [address] Culture BELOW [place], [place] [address] [phone] Inr/Protime 07/19/2019 [facility] Inr 1.10 High 0.[address] -1.0 [place] [address] 9 [phone] Laboratory test 07/19/2019 [facility] Partial 41.9 seconds High 26.[address] Thrombo Time -38. [place] [address] PTT 0 [phone] CBC Auto Diff 07/19/2019 [facility] White Blood 9.0 10^3/uL Normal 3.5- [address] Count 10.8 [place] [address] [phone] Red Blood Count 5.35 10^6/uL Normal 4.18-5.48 [...] Blood Cells % 0.5 Urinalysis Profile 07/19/2019 [facility] Urine Color Yellow [address] [place] [address] [phone] Urine Appearance Clear Urine Specific [place] 1.010 Normal 1.010-1.030 Urine pH 7.0 Normal 5-9 Urine Urobilinogen Negative Negative Urine Ketones Negative Negative Urine Protein Negative Negative Urine Leukocytes Negative Negative Urine Blood Negative Negative Urine Nitrite Negative Negative Urine Bilirubin Negative Negative Urine Glucose Negative Negative Type & Screen 07/19/2019 [facility] Patient Blood Type B Positive [address] [place] [address] [phone] Antibody Screen NEGATIVE Comp Metabolic 07/19/2019 [facility] Sodium 139 mmol/L Normal 135-[address] [place] [address] [phone] Potassium 4.1 mmol/L Normal 3.5-5.0 Chloride 103 [...] 116.1 >60 5 Urine Culture And 07/19/2019 [facility] Urine Culture SEE RESULT [address] [place] [address] [phone] 1 Because ethnic data is not always [...] [address]: Shanti Morel MD Acct: [id number] Unit: [id number] AGE: 63 Location: PAT Re08/16/19 SEX: M Status: REG REF SPEC: [id number] GENE: 08/16/19-[address] [facility] [address]: Shanti Morel MD REQ: [id number] RECD: 08/16/19 STATUS: COMP _ SOURCE: URINE SPDESC: ORDERED: Urine Culture QUERIES: Urine Source: Clean Catch Procedure Result Reported Site Urine Culture Final 08/17/19- 1418 ML No Growth (<1,000 CFU/mL) * ML - Main Lab . END OF REPORT DEPARTMENT OF PATHOLOGY, [address] [place] [address] Todd Mckay M.D. Director [facility] # [id number] 4 Standard intensity warfarin therapeutic range: 2.0-3.0 [...] [address]: Shanti Morel MD Acct: [id number] Unit: [id number] AGE: 63 Location: PAT Re07/19/19 SEX: M Status: REG REF SPEC: [id number] GENE: 07/19/19-[address] [facility] [address]: Shanti Morel MD REQ: [id number] RECD: 07/19/19 STATUS:COMP _ SOURCE: URINE SPDESC: ORDERED: Urine Culture QUERIES: Urine Source: Random Procedure Result Reported Site Urine Culture Final 07/20/19- 1252 ML No growth of clinically significant organisms * ML - Main Lab . END OF REPORT DEPARTMENT OF PATHOLOGY, [address], [place], [place] [address] Todd Mckay M.D. Director [facility] # [id number] Procedures Date Code Description Status 08/25/2019 36791 TKR Total Knee Replacement Completed 08/25/2019 35046 TKR Total Knee Replacement Completed 07/19/2019 59685 EKG, Interpretation Only Completed Medical Devices Description No Information Available Encounters Type Date Location Provider Dx Diagnosis Office Visit 08/25/2019 [facility] Ofelia Aguayo, I10 Essential ( primary) 10:36a tarah Smalls M.D. hypertension Hospitalists E03.9 Hypothyroidism, unspecified Office Visit 08/06/2019 Maric[facility]en Barton, S94.21xD Injury of deep 8:30a Orthopedics at [facility] [place] ank/ft level, right leg, subs Office Visit 05/26/2019 Maricarmen Morel, M17.12 Unilateral 8:00a Orthopedics jose Lopez primary [place] osteoarthritis, left knee M25.562 Pain in left knee M25.462 Effusion, left knee Office Visit 05/07/2019 9:30a Maricarmen Barton S94.21xD Injury of deep Orthopedics at [facility] [place] at ank/ft level, right leg, subs S94.21xD Injury of deep per[facility] at ank/ft level, right leg, subs Office Visit 05/07/2019 Maricarmen Barton, M17.12 Unilateral primary 9:15a Orthopedics at osteoarthritis, left [place] knee Assessments Date Code Description Provider 09/27/2019 M17.12 Unilateral primary osteoarthritis, Shanti Morel M.D. left knee 09/27/2019 M25.562 Pain in left knee Shanti Morel M.D. 09/27/2019 Z47.1 Aftercare following joint Shanti Morel M.D. replacement surgery 09/20/2019 M17.12 Unilateral primary osteoarthritis, Shanti Morel [...] MD left knee Plan of Treatment Future Appointment(s):10/13/2019 8:45 am - Shanti Morel M.D. at [facility] at Cvyvrl5710/25/2019 11:15 am - Shanti Morel M.D. at [facility] at Vacvhe0811/09/2019 8:30 am - Shanti Morel M.D. at [facility] at Dxifre0211/22/2019 8:45 am - Shanti Morel M.D. at [facility] at Kzsyrs6409/27/2019 - Shanti Morel M.D.M17.12 Unilateral primary osteoarthritis, left kneeFollow up:Follow up: 2 UUFQKQ28.562 Pain in left kneeZ47.1 Aftercare following joint replacement surgery Functional Status Description No Information Available Mental Status Description No Information Available Referrals Description No Information Available
[2019-11-09] MEDS ORDERED: ceFAZolin 2 GM in NS PREMIX(*) 2 GM/100 ML BAG IVPB ONE (07:30)
[2019-11-09] MEDS ORDERED: celeCOXIB CAP* 200 MG ONE (07:30)
[2019-11-09] MEDS ORDERED: Acetaminophen TAB* 325 MG ONE (07:30)
[2019-11-09] MEDS ORDERED: Gabapentin CAP(*) 300 MG ONE (07:30)
[2019-11-09] MEDS ORDERED: fentaNYL* 50 MCG/ML 2 ML VIAL (100 MCG VIAL) ONE ×2 (07:54→13:46)
[2019-11-09] MEDS ORDERED: Midazolam* 1 MG/ML 2 ML VIAL (2 MG) ONE (07:54)
[2019-11-09 08:43] LABS: Activated Partial Thrombo Time 40.8 seconds (26.0-38.0); INR 1.21 (0.82-1.09)
[2019-11-09] MEDS ORDERED: ROPIVACAINE 5 MG/ML 30 ML BTL (0.5%) ONE (08:54)
[2019-11-09] MEDS ORDERED: oxyCODONE TAB* 5 MG TAB PO PRN (09:41)
[2019-11-09] MEDS ORDERED: Naloxone* 0.4 MG/ML 1 ML VIAL IV PRN (09:41)
[2019-11-09] MEDS ORDERED: Rocuronium* 10 MG/ML VIAL ONE (10:05)
[2019-11-09] MEDS ORDERED: Propofol* 10 MG/ML 20 ML BTL ONE (10:21)
[2019-11-09] MEDS ORDERED: Dexamethasone IV* 4 MG/ML 1 ML (4 MG) ONE (10:21)
[2019-11-09] MEDS ORDERED: Lidocaine 2% PF * 5 ML VIAL ONE (10:21)
[2019-11-09] MEDS ORDERED: Ondansetron INJ* 2 MG/ML VIAL ONE (10:21)
[2019-11-09] MEDS ORDERED: diPHENhydraMINE IV* 50 MG/ML 1 ml VIAL (BENADRYL) IV PRN (12:05)
[2019-11-09] MEDS ORDERED: Cyclobenzaprine TAB* 10 MG PO PRN (12:05)
[2019-11-09] MEDS ORDERED: traMADol TAB* 50 MG PO PRN (12:05)
[2019-11-09] MEDS ORDERED: Polyethylene Glycol 3350* 17 GM PACKET PO PRN (12:05)
[2019-11-09] MEDS ORDERED: Magnesium Hydroxide LIQ* 30 ML UDC PO PRN (12:05)
[2019-11-09] MEDS ORDERED: Ondansetron ODT TAB* 4 MG PO PRN (12:05)
[2019-11-09] MEDS ORDERED: diPHENhydraMINE PO* 25 MG PO PRN (12:05)
[2019-11-09] MEDS ORDERED: Morphine INJ* 2 MG/ML 1 ML SYRINGE (TWO MG - NEW SYRINGE VERSION) IV PRN (12:05)
[2019-11-09] MEDS ORDERED: Ondansetron TAB* 4 MG PO PRN (12:05)
[2019-11-09] MEDS ORDERED: Ondansetron INJ* 2 MG/ML VIAL IV PRN (12:05)
[2019-11-09] MEDS ORDERED: Sugammadex * 200 MG/2 ML VIAL IV PUSH ONE (13:40)
--- NOTE | 2019-11-09 14:01 | OP ---
Operative Report - Blank - Operative Report Date of Operation: 11/09/19 Note: NIKKO BERTRAND 1955 Date of Surgery: 11/09/19 Shanti Morel MD Pt Escort: Yoni ASHTON did help throughout the procedure with preparation of the knee, wound retraction, manipulation of the knee, and wound closure. Anesthesiologist: Dr. Garcia Anesthesia Type: Spinal Preoperative Diagnosis: Right severe degenerative osteoarthritis of the knee Postoperative Diagnosis: As above Procedure Performed: Right Total Knee Arthroplasty Tourniquet time: 75 minutes Complications: None Specimen: Bone and cartilage from the right knee joint sent to pathology. Hardware Used: Cemented Olmedo [employer] Nephew total knee hardware was used - For the femur a size 7 right oxinium legion posterior stabilized femoral component, for the tibia a size 6 right latha II tibial baseplate, for the insert a size 9mm 5-6 posterior stabilized articular polyethylene insert, and for the patella a size 35 3-peg all poly patella. The Phase [employer] robotic navigation system was used in this case at the patient's request. Brief History/Indication: NIKKO BERTRAND was known in clinic and had a history of severe right knee pain and swelling. He failed conservative treatment with anti-inflammatories, pain pills, intra-articular injections and physical therapy. He elected to undergo right total knee arthroplasty due to continued pain and decreased quality of life. Radiographs showed severe end stage osteoarthritis of the knee with bone on bone contact. Informed consent was obtained from the patient. He understood the risks of surgery included but were not limited to: bleeding, infection, damage to nearby structures, intraoperative fracture, nerve palsy, failure of the hardware, early loosening, knee stiffness or loss of motion, anesthesia complications, stroke, heart attack , blood clot and . He accepted the additional pin site risks of infection and fracture associated with the Navio robotic system. He wished to proceed. Intra-Operative Findings: Intraoperatively the patient was noted to have severe loss of cartilage in all 3 compartments of the knee. Description of the Procedure: NIKKO BERTRAND was identified in the preanesthesia unit. His right knee was marked as the correct operative side. Informed consent was signed and placed in the chart. The patient was taken to the operating room and placed under anesthesia without complication. A reveles catheter was placed. A tourniquet was placed on the right thigh. The right lower extremity was prepped and draped in the usual sterile fashion. Preoperative time-out was made to correctly identify the patient, side and site. Appropriate intraoperative antibiotics were given within one hour of incision. Tourniquet was inflated. A midline incision was made and carried sharply down to the extensor mechanism. A new 10 blade was used to make a standard medial parapatellar arthrotomy. The patella was subluxed laterally. Electrocautery was used to dissect soft tissue off the superomedial tibia to the midsagittal plane. The knee was flexed up. The anterior horn of the lateral meniscus and the ACL/PCL were sharply incised. Two checkpoint screws were placed. This was followed by placing the two femoral pins and the two tibial pins. The arrays were connected and the patient's anatomy was mapped using the [employer] robotic navigation system. The hardware sizes and placement were determined using the Navio system. The robotic tanya was used to make the distal femoral cut. The distal femur was sized to a size 7. The size 7 multi-cutting jig was pinned on the distal femur. The oscillating saw was used to make the appropriate 4 chamfer cuts. Next the PCL was completely released. The extramedullary tibial cutting guide was pinned on the proximal tibia and the Navio angle guide was used to choose the cutting angle. The oscillating saw was used to make the proximal tibial cut perpendicular to the mechanical axis of the tibia. The bone was carefully removed. The knee was brought out into full extension. The spacer block was placed and had excellent fit with the knee in full extension. The medial and lateral ligaments were well balanced. The flexion and extension gaps were well balanced. The knee was flexed up. Lamina precipitator was placed both medially and laterally. Any remaining meniscus was removed with electrocautery. Curved osteotome was used to remove any posterior osteophytes. The tibial tray and drop lee were placed and confirmed a satisfactory tibial cut. The size 7 right femoral trial was impacted onto the distal femur. This trial had excellent fit and stability. The box for the posterior stabilized implant was prepared using a box cut osteotome and a reamer. Next a tibial tray trial and 9 mm insert trial was placed. The knee was taken through a range of motion and had full extension to 130 degrees of flexion. Patellofemoral tracking was satisfactory. The final Navio measurements were recorded. The two screws and four pins were removed without difficulty. The patella was inverted and sized to a size 35. Three peg holes were drilled through the size 35 drill guide. The trial patella was placed and the knee was taken through a range of motion. There was satisfactory patellofemoral tracking. All trials were removed. The tibia was subluxed anteriorly and sized to a size 6. The proximal tibial was prepared with a size 6 keel punch. All bony cut surfaces were irrigated with sterile saline and dried. Final implants were cemented into place starting with the tibia, followed by the femur, and last the patella. A 9 mm insert trial was placed and the knee was brought into full extension. Tourniquet was turned down and the knee was copiously irrigated with sterile saline. Electrocautery was used to obtain meticulous hemostasis. Once the cement had fully cured, the insert trial was removed. Any excess cement was removed from around the hardware and capsule. Final insert chosen was a 9 mm posterior stabilized Latha II articular insert size 5-6. Stability of the insert was checked and noted to be stable. It was noted that a small metal tip was missing off of an instrument. An intraoperative xray was obtained and did show the tip in the posterior capsule of the joint. The polyethylene was removed and the posterior joint was copiously irrigated. Follow-up films show the metal was successfully removed. A new 9mm insert was placed without complication. The extensor mechanism was closed using number 1 vicryls. The rest of the incision was closed in a layered fashion using 0 and 2-0 vicryls. The skin was closed using 3-0 nylon suture. Sterile xeroform, 4x4s and webril were used to cover the incision. Chuck wrap and cold pack were used to cover the dressings. The patients anesthesia was reversed without difficulty. He was taken to the PACU in stable condition. Intended weight-bearing will be as tolerated.
[2019-11-09] MEDS ORDERED: HYDROmorphone INJ1* 1 MG/ML SYRINGE ONE (14:24)
[2019-11-09] MEDS: HYDROmorphone INJ1* 1 MG/ML SYRINGE IV PRN ×2 (14:25→14:49)
[2019-11-09] MEDS ORDERED: oxyCODONE TAB* 5 MG TAB ONE (14:39)
[2019-11-09] MEDS: Lactated Ringers 1000 ML Bag* 1,000 ML IV SCH (16:18)
[2019-11-09] MEDS: oxyCODONE/Acetamin 5/325 MG* TAB PO PRN ×2 (17:06→22:25)
[2019-11-09] MEDS: Acetaminophen TAB* 325 MG PO SCH (17:27)
[2019-11-09] MEDS: ceFAZolin 1 GM ADVAN(*) 1 GM in NS 0.9% 50 ML* 50 ML IVPB SCH (18:25)
--- NOTE | 2019-11-09 19:06 | CONS ---
CC: Dr. Morel; Dr. Sadler * CONSULTATION REPORT: DATE OF CONSULT: 11/09/19 PROVIDER: Mary Jo Medley NP PRIMARY CARE PROVIDER: Dr. Yousuf Sadler. PHYSICIAN REQUESTING CONSULT: Dr. Shanti Morel. ATTENDING PHYSICIAN: Dr. Shelby Spivey. REASON FOR CONSULT: Co-management of chronic medical conditions. CHIEF COMPLAINT: Left knee pain. HISTORY OF PRESENT ILLNESS: Mr. Ibrahim is a 63-year-old male with a past medical history significant for hypothyroid, hypertension, history of thyroid cancer, who presented to [facility] for an elective right total knee arthroplasty with Dr. Morel. Please see dictated H and P from DAISHA Teixeira, for complete details. In brief, the patient had ongoing pain, failed conservative measures, and therefore opted to have a right total knee arthroplasty with Dr. Morel. PAST MEDICAL HISTORY: Significant for: 1. Hypertension. 2. History of thyroid cancer, status post thyroidectomy and radiation. 3. History of hepatitis C. 4. Cervical spondylosis without myelopathy. 5. Traumatic peroneal nerve injury, history. PAST SURGICAL HISTORY: 1. Thyroidectomy. 2. Back surgery in 1983. 3. Foot surgery in 2018. 4. Left total knee arthroplasty. 5. Eye surgery. HOME MEDICATIONS: Include: 1. Levothyroxine 250 mcg p.o. daily. 2. Vitamin D 1000 units - the patient reports he is not taking this. 3. Atenolol 50 mg p.o. daily. 4. Ramipril 5 mg p.o. b.i.d. 5. Tamsulosin 0.4 mg p.o. daily. 6. Hydrochlorothiazide 25 mg p.o. daily. 7. Potassium chloride 10 mEq 1 tablet p.o. daily. ALLERGIES: To ROSUVASTATIN. FAMILY HISTORY: Father with history of an [place]. No reported history of diabetes. Father from pancreatic cancer at the age of 66 and 1 brother who from brain injury. SOCIAL HISTORY: The patient is a current smoker, smokes approximately 1 pack per week. Denies any alcohol or illicit drug use. Surrogate decision maker in the event he is unable to make his own decision is his . He is a full code. REVIEW OF SYSTEMS: Please see history of present illness. All remaining 12 systems were reviewed and negative. PHYSICAL EXAM: General: At this time, Mr. Ibrahim is alert and oriented, resting on the stretcher in PACU. He is in no acute distress. Vital Signs: Blood pressure 113/66, heart rate 60, respirations 16, O2 saturation 98%, temperature was 98.0. HEENT: Head is atraumatic, normocephalic. Eyes: EOMs are intact. Sclerae anicteric and not pale. Oral mucosa is moist. Neck is supple. Lungs are clear to auscultation bilaterally. No wheezes, rales, or rhonchi. Cardiac: S1, S2. Regular rate and rhythm. No murmurs, rubs, or gallops. Abdomen is soft and nontender. Bowel sounds are present x4. Extremities: He is able to move all 4 extremities. He does have a dressing that is dry and intact to his right knee. Neurologic: He is awake, alert, oriented x3. Speech is clear. Thought process is intact. There are no focal deficits. Skin: He does have a dressing dry and intact to the right knee. DIAGNOSTIC STUDIES/LAB DATA: INR 1.21, APTT was 40.8. CBC from 10/25/19: WBCs were 9.4, RBCs 4.91, hemoglobin 15.1, hematocrit 44, platelet count was 258. Sodium 138, potassium 3.7, chloride 100, carbon dioxide 31, anion gap was 7 , BUN 15, creatinine 0.82, glucose was 83, calcium 9.4. Total bilirubin 0.40, ASTs were 32, ALTs 46, alkaline phosphatase was 60. Urine was within normal limits. IMPRESSION AND PLAN: Mr. Ibrahim is a 63-year-old male with a past medical history significant for hypertension, hypothyroid, who presented to [facility] for an elective right total knee arthroplasty with Dr. Morel. Our recommendations are as follows: 1. Status post right total knee arthroplasty. Management per Orthopedics. PT/ OT per Orthopedics. Bowel regimen per Orthopedics. Pain management per Orthopedics and DVT prophylaxis per Orthopedics. 2. Hypertension. I would hold his hydrochlorothiazide. I would continue his atenolol and I will hold his ramipril and resume as able. 3. Hypothyroidism. He should continue on levothyroxine 125 mcg 2 tablets daily. 4. FEN: He can have a regular diet. 5. Code status: He is a full code. 6. DVT prophylaxis: He will be continued on Eliquis. TIME SPENT: Time spent on this consultation was 45 minutes, greater than half that time was spent at the bedside reviewing events leading thus far to his hospitalization, performing physical exam, and reviewing my plan of care. I have discussed this with my attending, Dr. Shelby Spivey; she is in agreement with my plan. MARY JO MEDLEY, PAINT MIXER MACHINE [id number]/CPS #: [id number] [place]
[2019-11-09] MEDS: oxyCODONE TAB* 5 MG TAB PO PRN ×2 (19:46→23:45)
[2019-11-09] MEDS ORDERED: Ramipril CAP* 5 MG PO SCH (21:00)
[2019-11-09] MEDS: Docusate CAP* 100 MG PO SCH (22:26)
[2019-11-09] MEDS: Magnesium Hydroxide LIQ* 30 ML UDC PO SCH (22:26)
[2019-11-10] MEDS: oxyCODONE/Acetamin 5/325 MG* TAB PO PRN ×3 (02:27→10:37)
[2019-11-10] MEDS: ceFAZolin 1 GM ADVAN(*) 1 GM in NS 0.9% 50 ML* 50 ML IVPB SCH ×2 (02:27→10:20)
[2019-11-10] MEDS: Lactated Ringers 1000 ML Bag* 1,000 ML IV SCH (02:27)
[2019-11-10] MEDS: Acetaminophen TAB* 325 MG PO SCH ×2 (02:31→08:57)
[2019-11-10] MEDS: oxyCODONE TAB* 5 MG TAB PO PRN ×3 (03:50→13:39)
[2019-11-10] MEDS ORDERED: Levothyroxine TAB* 125 MCG TAB PO SCH (06:00)
[2019-11-10 07:17] LABS: Hematocrit 36 % (42-52); Hemoglobin 12.6 g/dL (14.0-18.0); Mean Platelet Volume 8.5 fL (7.4-10.4); Platelet Count 229 10^3/uL (150-450)
[2019-11-10 07:38] LABS: BUN/Creatinine Ratio 22.1 (8-20); Calcium 8.8 mg/dL (8.6-10.3); EGFR African American 123.1 (>60); EGFR Non-African American 101.7 (>60); Potassium 3.8 mmol/L (3.5-5.0)
[2019-11-10] MEDS: Docusate CAP* 100 MG PO SCH (08:12)
[2019-11-10] MEDS: Magnesium Hydroxide LIQ* 30 ML UDC PO SCH (08:59)
[2019-11-10] MEDS ORDERED: Levothyroxine TAB* 125 MCG TAB PO ONE (09:00)
[2019-11-10] MEDS ORDERED: Vitamin THERAPEUTIC TAB PO SCH (09:00)
[2019-11-10] MEDS ORDERED: Tamsulosin CAP* 0.4 MG PO SCH (09:00)
[2019-11-10] MEDS ORDERED: Apixaban* 2.5 MG TAB PO SCH (09:00)
[2019-11-10] MEDS ORDERED: Potassium Chlor TAB* 10 MEQ TAB.ER PO SCH ×2 (09:00)
[2019-11-10] MEDS ORDERED: Atenolol TAB* 50 MG PO SCH (09:00)
[2019-11-10] MEDS ORDERED: Hydrochlorothiazide TAB* 25 MG PO SCH (09:00)
[2019-11-10] MEDS ORDERED: Potassium Chlor TAB* 10 MEQ TAB.ER PO ONE (10:00)
--- NOTE | 2019-11-10 10:39 | DS ---
Orthopedic Discharge Summary - Discharge Summary Date of Admission:11/09/19 Date of Discharge: 11/10/19 Date of Surgery: 11/09/19 Attending Orthopedic Provider: Dr Morel Pre-operative Diagnosis: Right knee osteoarthritis Operative Procedure: right total knee replacement Disposition of Patient:home Home care vs Outpatient services: outpatient, will have sodium lab draw in about 3 days was 133 on 11/10 Condition of Patient: stable Pain medication RX at discharge: percocet 5/325 mg 1-2 tab q 4 hr prn pain mdd 10 DVT prophylaxis RX at discharge: eliquis 2.5 mg po q 12 hr x 30 days post op History: NIKKO BERTRAND is a 63 year old M with years of increasingly severe right knee pain. Patient has failed conservative management and has elected to undergo a right total knee replacement Hospital Course: NIKKO was admitted to [facility] on 11/09/19. Patient underwent a right total knee replacement without complication followed by a brief recovery in PACU and transfer to the Short Stay Surgical Unit in stable condition. Our hospitalist service, physical therapy also participated in this patients care. Post-op day 1: patient was alert and in no acute distress. Dressing was clean, dry and intact. Operative extremity dorsiflexion and plantarflexion intact, sensation intact to light touch distally, DP2+. Prior to DC: dressing was changed, incision was clean, dry and intact. Patient was deemed to be medically and orthopedically stable for discharge. Physical therapy goals were met. Home Medications Medication Instructions Recorded Confirmed Type Hydrochlorothiazide TAB* 25 mg PO QAM 07/09/18 11/09/19 History Hydrodiuril TAB* Levothyroxine Sodium [Synthroid] 250 mcg PO QAM 07/09/18 11/09/19 History Potassium Chloride 20 meq PO QAM 07/09/18 11/09/19 History Ramipril 10 mg PO QAM 07/09/18 11/09/19 History atenoloL [Atenolol] 50 mg PO QAM 07/09/18 11/09/19 History Tamsulosin HCl 0.4 mg PO QAM 07/19/19 11/09/19 History Acetaminophen TAB* [Tylenol TAB*] 975 mg PO Q8HR tab 08/26/19 11/09/19 Rx Docusate CAP* [Colace Cap*] 100 mg PO BID PRN #90 cap 08/26/19 10/25/19 Rx Acetaminophen TAB* [Tylenol TAB*] 975 mg PO Q8H tab 11/10/19 Rx Apixaban* [Eliquis*] 2.5 mg PO BID #60 tab 11/10/19 Rx oxyCODONE/Acetamin 5/325 MG* 2 tab PO Q4H PRN #50 tab MDD 10 11/10/19 Rx [Percocet 5/325 TAB*] Discharge Instructions following Orthopedic Surgery: Activity: * Weight Bearing as tolerated * Continue physical therapy and occupational therapy exercises as shown * you have elected outpatient physical therapy, please start therapy as an outpatient right away. Wound care: * OK to shower on post-op day 3, no bathing, swimming, or submerging wound. * Use gentle soap, pat dry. Cover with gauze, SPIKE wrap or tape. Call Orthopedic office for: * Increased drainage * Redness * Increased pain * Fever Go to ER with shortness of breath or chest pain. Diet: * Regular diet * Increase fluids and fiber to prevent constipation. * Continue to use stool softeners, call office if no bowel motion within 48 hours. Medications See Home Medication List in your packet for medications that you should take after discharge. DVT Prophylaxis: Eliquis Dosin.5 mg, 1 tab every 12 hours x 30 days, Increases bleeding tendency Pain Control: Percocet 5/325 mg 1 tab for moderate pain and 2 tabs for severe pain by mouth every 4 hours as needed. Maximum of 10 tabs per day. Hold for sedation , wean off as soon as pain allows Please note that Percocet contains Tylenol (acetaminophen). Maximum daily dose of Tylenol is 4000 mg from all sources. Go to the outpatient lab for a sodium check in roughly 3 days as it was slightly low in the hospital You may restart your ramipril and hydrochlorothiazide tomorrow Antibiotics are required prior to any dental work. FOLLOW UP: Follow up with Dr. Morel Within 10-14 days, call for appointment Please call our office with any questions or concerns ([phone]) Rx [facility]
[2019-11-10 11:23] VITALS: BP 111/59
[2019-11-11] MEDS ORDERED: Levothyroxine TAB* 125 MCG TAB PO SCH ×2 (06:00)
[2019-11-11] MEDS ORDERED: Potassium Chlor TAB* 10 MEQ TAB.ER PO SCH (09:00)
== END 2019-11-10 14:40 | disposition home or self-care (01) | DRG 302 ==
LOC: AA 07:01 → EDSTATUS 09:00 → SSU 12:05
PROVIDERS: ADMIT Orthopaedic Surgery Adult Reconstructive Orthopaedic Surgery; ATTEND Orthopaedic Surgery Adult Reconstructive Orthopaedic Surgery
PROC: 8E0Y0CZ Robotic Assisted Procedure of Lower Extremity, Open Approach (ICD-10-PCS; 2019-11-09)
PROC: 0SRC069 Replacement of Right Knee Joint with Oxidized Zirconium on Polyethylene Synthetic Substitute, Cemented, Open Approach (ICD-10-PCS; principal; 2019-11-09 10:00)
DX: M17.11 Unilateral primary osteoarthritis, right knee (principal); I10 Essential (primary) hypertension; E89.0 Postprocedural hypothyroidism; G89.29 Other chronic pain; M25.761 Osteophyte, right knee; I25.10 Atherosclerotic heart disease of native coronary artery without angina pectoris; E78.00 Pure hypercholesterolemia, unspecified; Z87.891 Personal history of nicotine dependence; Z85.850 Personal history of malignant neoplasm of thyroid; Z92.3 Personal history of irradiation; Z86.19 Personal history of other infectious and parasitic diseases; Z88.8 Allergy status to other drugs, medicaments and biological substances; Z79.899 Other long term (current) drug therapy; Z79.890 Hormone replacement therapy
CPT/HCPCS: 36415; 76000; 80048; 85014; 85018; 85049; 85610; 85730; 86850; 86900; 86901; A9270-GY; C1776; J0690; J1100; J1170; J2250; J2405; J2704; J2795; J3010